=== PATIENT | female | born 1965 | race Caucasian/White ===

== ENCOUNTER → 2023-04-09 | Outpatient (CLI) | payer OTHER, SELFPAY ==
--- NOTE | 2023-04-09 | EMB_PTH ---
PATHOLOGY RESULTS PATIENT: JOSEFA RUTHERFORD LOC: [facility] U#:[id number] AGE/SX: 58/F ROOM: RE04/09/[address]: MAYUR Rodriguez : 1965 BED: DIS: 04/09/2023 SPEC #: [id number] RECD: 04/09/23 11:42 STATUS: RAMAN REStefanie #: [id number] STEFANY: 04/09/23 00:[address]: Indy Iraheta NP DEPT: SURGICAL PATHOLOGY RECD BY: Jael Jean ENTERED: 04/09/23 11:42 SP TYPE: ENDOM BX/C KRYSTAL DR: Dr. Terese Cote MD Tissues: Endometrium, NOS Procedures: Surgery Specimen Level IV HEADER OPERATION: Endometrial biopsy PRE-OP DIAGNOSIS: Abnormal uterine bleeding TISSUE SUBMITTED: Endometrial lining MICROSCOPIC DIAGNOSIS Endometrial biopsy: Proliferative endometrium. See comment. CASSIE:kaitlyn 04/10/2023 COMMENT Focal eosinophilic infiltrates are noted, significance is not clear. Focal areas also show collagenous fibrosis. Clinical correlation and appropriate follow up are necessary. Case has been reviewed in consultation with Dr. Bautista who concurs with the above diagnosis. IDC:AM MICROSCOPIC DESCRIPTION Slides are reviewed. GROSS DESCRIPTION Received is one container labeled with the patient's name and not further designated. The specimen consists of multiple fragments of hemorrhagic soft tissue mixed with frausto mucoid tissue that in aggregate measure 3.0 x 2.5 x 0.3 cm. The specimen is totally submitted in one cassette. / SJ:rg 04/09/2023 TC:5 CPT: [id number]
--- OUTSIDE RECORDS SUMMARY | 2023-04-09 12:52 | XMS RPT_ITS | CCD ---
Author Name Unknown Address [address] [place] [address] Organization [facility] Care Team Providers Care Casing In Line Feeder Name Role Phone Seymour Cote MD Primary Care Provider SEYMOUR COTE Referring Unavailable SEYMOUR COTE Primary Care Unavailable SEYMOUR COTE Primary Care Unavailable SEYMOUR COTE Attending Unavailable Allergies Allergy Classification Reported Allergen(s) Allergy Type Date of Onset Reaction(s) Facility (18 sources) Cat; Translations: [CATS] Allergy to substance 6 Unknown [facility] (18 sources) Cetirizine; Translations: [CETIRIZINE HCL] Drug Allergy 8 Other: See Comments [facility] Work Phone: (18 sources) Dog; Translations: [DOGS] Allergy to substance 6 Unknown [facility] (18 sources) Seasonal allergy; Translations: [SEASONAL ALLERGIES] Allergy to substance 6 Unknown [facility] (18 sources) Sulfonamides (Antibiotic); Translations: [SULFA (SULFONAMIDE ANTIBIOTICS)] Drug Allergy 1 Unknown [facility] Medications Completed/Discontinued Medications Medication Drug Class(es) Dates Sig (Normalized) Sig (Original) [id number] 200 actuat albuterol 0.09 mg/actuat metered dose inhaler (17 sources) beta2-Adrenergic Agonist Start: 11-07-2019 take 2 puff(s) by inhalation every four hours as needed for wheezing albuterol HFA (PROVENTIL HFA, VENTOLIN HFA) 90 mcg/actuation inhaler Inhale 2 Puffs as instructed every 4 hours as needed for Wheezing/Shortnes s of Breath. 18 g 0 11/07/2019 Active Problems Active Problems Problem Classification Problem Date Documented Date Episodic/Chronic Anxiety disorders (1 source) Anxiety; Translations: [Anxiety disorder, unspecified] Chronic Headache; including migraine (2 sources) Migraine with aura; Translations: [Migraine with aura, not intractable, without status migrainosus] Chronic Headache; including migraine (4 sources) Chronic daily headache; Translations: [Chronic daily headache] Episodic Menstrual disorders (17 sources) Menometrorrhagia; Translations: [Excessive and frequent menstruation with irregular cycle] Onset: 02-17-2014 02-17-2014 Chronic Miscellaneous mental health disorders (1 source) Chronic insomnia; Translations: [Psychophysiologic insomnia] Chronic Mood disorders (18 sources) Depressive disorder; Translations: [Depression] Onset: 02-17-2014 02-17-2014 Chronic Other upper respiratory disease (17 sources) Allergic rhinitis; Translations: [Allergic rhinitis, unspecified] Onset: 03-17-2016 03-17-2016 Chronic Residual codes; unclassified (1 source) Behavior finding; Translations: [Other sleep apnea] Chronic Residual codes; unclassified (2 sources) Obstructive sleep apnea syndrome; Translations: [Obstructive sleep apnea (adult) (pediatric)] Chronic Residual codes; unclassified (1 source) Hypoxia; 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] Chronic Past or Other Problems Problem Classification Problem Date Documented Da te Episodic/Chronic Other disorders of stomach and duodenum (17 sources) Nonulcer dyspepsia; Translations: [Functional dyspepsia] Onset: 03-26-2017 03-26-2017 Episodic Other gastrointestinal disorders (12 sources) Alteration in bowel elimination; Translations: [Change in bowel habit] Onset: 03-26-2017 03-26-2017 Episodic Other gastrointestinal disorders (5 sources) Altered bowel function; Translations: [Change in bowel habit] Onset: 03-26-2017 03-26-2017 Episodic Other screening for suspected conditions (not mental disorders or infectious disease) (9 sources) Patient encounter status; Translations: [Encounter for screening mammogram for malignant neoplasm of breast] Onset: 07-18-2022 Episodic Results Test Name Value Interpretation Reference Range Facil ity Vital Signs Date Time Vital Sign Value Performing Clinician Lars troncoso 06-17-2022 13:30-0400 Body height 162 cm Seymour Cote MD Work Phone: [facility] 06-17-2022 13:30-0400 Body temperature 98.1 [degF] Seymour Cote MD Work Phone: [facility] 06-17-2022 13:30-0400 Body weight 80.2 kg Seymour Cote MD Work Phone: [facility] 06-17-2022 13:30-0400 Diastolic blood pressure 78 mm[Hg] Seymour Cote MD Work Phone: [facility] 06-17-2022 13:30-0400 Heart rate 71 /min Seymour Cote MD Work Phone: [facility] 06-17-2022 13:30-0400 Respiratory rate 18 /min Seymour Cote MD Work Phone: [facility] 06-17-2022 13:30-0400 SaO2% (BldA) [Mass fraction] 97 % Seymour Cote MD Work Phone: [facility] 06-17-2022 13:30-0400 Systolic blood pressure 132 mm[Hg] Seymour Cote MD Work Phone: [facility] 09-06-2021 13:06-0400 Body temperature 97.81 [degF] Davie Ling Jr., MD Work Phone: [facility] 09-06-2021 13:06-0400 Body weight 79.38 kg Davie Ling Jr., MD Work Phone: [facility] 09-06-2021 13:06-0400 Diastolic blood pressure 64 mm[Hg] Davie Ling Jr., MD Work Phone: [facility] 09-06-2021 13:06-0400 Heart rate 81 /min Davie Ling Jr., MD Work Phone: [facility] 09-06-2021 13:06-0400 Respiratory rate 18 /min Davie Ling Jr., MD Work Phone: [facility] 09-06-2021 13:06-0400 SaO2% (BldA) [Mass fraction] 96 % Davie Ling Jr., MD Work Phone: [facility] 09-06-2021 13:06-0400 Systolic blood pressure 116 mm[Hg] Davie Lnig Jr., MD Work Phone: [facility] Encounters Encounter Date Encounter Type Care Provider Facility Start: 07-24-2022 ambulatory Seymour minor MD Work Phone: [facility] Procedures Date Procedure Procedure Detail Performing Clinician Start: 06-17-2022 Cytp c/v auto thin l yr prepj scr mnl rescr phys Seymour Cote MD Work Phone: Start: 06-17-2022 Iadna human papillom avirus high-risk types Seymour Cote MD Work Phone: Start: 04-20-2017 Colonoscopy Seymour montalvo MD Work Phone: Start: 04-26-2015 Mammography Seymour montalvo MD Work Phone: Plan of Treatment Date Care Activity Detail Author Start: 07-19-2027 LIPID SCREEN LIPID SCREEN [facility] Start: 06-18-2027 HPV TESTING HPV TESTING [facility] Start: 06-18-2027 PAP TESTING PAP TESTING [facility] Start: 07-18-2025 DIABETES SCREEN DIABETES SCREEN [facility] Start: 09-20-2023 DIABETES SCREEN DIABETES SCREEN [facility] Start: 06-18-2023 COVID-19 VACCINE (3 - Booster for Pfizer series) COVID-19 VACCINE (3 - Booster for Pfizer series) [facility] Immunizations Immunization Date Immunization Notes Care Provider Fa cility 04-12-2021 COVID-19 vaccine, ag e 12+ yr (PFIZER-BIONTECH - CABALLERO TOP) Seymour Cote MD Work Phone: [facility] Work Phone: 01-25-2010 tetanus toxoid, redu kari diphtheria toxoid, and acellular pertussis vaccine, adsorbed Seymour Cote MD Work Phone: [facility] Payers Date Payer Category Payer Unknown [employer] [id number] 2021-Present [phone] [address] [place] [address] PPO [id number] 2021 Unknown [id number] 2017 Unknown [id number] Social History Date Type Detail Facility Start: 11-27-2010 End: 06-26-2015 Tobacco smoking status NHIS Ex-smoker [facility] History of tobacco use Cigarette Smoker [facility] Start: 11-27-2010 End: 06-26-2015 Tobacco use and exposure Smokeless tobacco non-user [facility] Start: 09-19-2020 End: 06-17-2022 Alcohol intake Current drinker of alcohol (finding) [facility] Start: 09-19-2020 End: 06-17-2022 Alcohol intake [facility] Start: 10-09-2019 End: 06-16-2022 History SDOH Alcohol Frequency 3 [facility] Start: 10-09-2019 End: 06-16-2022 History SDOH Alcohol Std Drinks 1 [facility] Start: 04-20-2017 History SDOH Alcohol Comment monthly [facility] Start: 10-09-2019 End: 06-16-2022 History SDOH Social Connections Phone 2 [facility] Start: 10-09-2019 End: 06-16-2022 History SDOH Social Connections Get Together 5 [facility] Start: 10-11-2019 End: 11-26-2021 History SDOH Financial 4 [facility] Start: 10-09-2019 Education 15 [facility] Start: 11-27-2010 Tobacco Comment quit 10 years ago [facility] Start: 1965 Sex Assigned At Female [facility] Start: 06-28-2021 End: 11-06-2021 Exposure to SARS-CoV-2 (event) Not sure [facility] History of tobacco use Current smoker [facility] Clinical Notes 09-03-2015 to 07-25-2022 Telephone Encounter - Meera Chapman APRN.BRANCH OPERATIONS SPECIALIST - 07/25/2022 4:31 PM EDTTelephone Encounter - Davie Ling Jr., MD - 06/29/2022 9:54 AM EDTPatient Noémiguel angel Zhane - 10/23/2021 11:54 AM EDT Note Date & Type Note Facility 07-25-2022 Miscellaneous Notes The 10-year ASCVD risk score (Saarth DK, et al., 2019) is: 3.8% Values used to calculate the score: Age: 57 years Sex: Female Is Non- : No Diabetic: No Tobacco smoker: No Systolic Blood Pressure: 132 mmHg Is BP treated: No HDL Cholesterol: 33 mg/dL Total Cholesterol: 208 mg/dL documented in this encounter [facility] 07-23-2022 Note Patient Outreach (IN TMM[facility]) JOSEFA RUTHERFORD ([id number]) 1965 F Date Time Provider Department 07/23/22 SEYMOUR COTE During your visit today, we recorded the following information about you: Allergies As of Date: 07/23/2022 Noted Allergy Reaction CATS 06/26/2015 16 - Unknown Comments: Verified by skin testing DOGS 06/26/2015 16 - Unknown Comments: Verified by skin testing SEASONAL ALLERGIES 06/26/2015 16 - Unknown Comments: Dust mites, trees, grasses, weeds and ragweed verified by skin testing SULFA (SULFONAMIDE ANTIBIOTICS) 11/27/2010 16 - Unknown Comments: Happened as a baby ZYRTEC (CETIRIZINE HCL) 04/30/2017 14 - Other: See Comments Comments: weird dreams Date Reviewed: 06/17/2022 Reviewed by: Anabela Saelh LPN - Fully Assessed Visit Diagnosis:Encounter for screening mammogram for breast cancer [Z12.31] Order(s):[facility] [[id number]] Order #: [id number] FUTURE Prescriptions as of 07/28/2022 - gabapentin (NEURONTIN) 300 mg capsule Take 1 capsule by mouth twice daily for 90 days. - mometasone (NASONEX) 50 mcg/actuation nasal spray Use 2 Sprays in the nose once daily as needed (nasal congestion, sinus pain and pressure, allergies, runny nose). Rinse mouth after use. - albuterol HFA (PROVENTIL HFA, VENTOLIN HFA) 90 mcg/actuation inhaler Inhale 2 Puffs as instructed every 4 hours as needed for Wheezing/Shortness of Breath. - loratadine (CLARITIN) 10 mg tablet Take 1 tablet by mouth once daily. 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 Please contact our schedulers as well as [facility] to see if they have yet to reach out to patient. Davie Ling MD documented in this encounter [facility] 06-19-2022 Miscellaneous Notes [employer]af[employer] message sent to pt asking if she wants to do the pap titration study. Marylu Willis LPN documented in this encounter [facility] 06-17-2022 Note HNO ID: [id number] Author: Seymour Cote MD Service: ? Author Type: Physician Type: Progress Notes Filed: 07/20/2022 10:23 PM Note Text: This note was created using PopUpstersriter. Subjective Josefa Rutherford is a 57 year old female. HISTORY Josefa Rutherford is a 57 year old lady here for yearly exam and follow up appointment. Reviewed issue with the recent HST. No CPAP titration done yet--some issues with trying to get it scheduled and being told study not covered. [facility] insurance nurse said is covered. Noted that did not try gabapentin after saw Dr. Ling. Will be seeing Dr. Dowd in a few days for headaches. PAST MEDICAL HISTORY Diagnosis Date Anemia Depression History of seasonal allergies Misperception of sleep state 09/03/2015 PSG done 2015 Nightmares 09/03/2015 Snoring Transfusion history 2010 3 units PRBCs for acute anemia due to AUB Current Outpatient Medications Medication Sig albuterol HFA (PROVENTIL HFA, VENTOLIN HFA) 90 mcg/actuation inhaler Inhale 2 Puffs as instructed every 4 hours as needed for Wheezing/Shortness of Breath. loratadine (CLARITIN) 10 mg tablet Take 1 tablet by mouth once daily. gabapentin (NEURONTIN) 300 mg capsule Take 1 capsule by mouth twice daily for 90 days. mometasone (NASONEX) 50 mcg/actuation nasal spray Use 2 Sprays in the nose once daily as needed (nasal congestion, sinus pain and pressure, allergies, runny nose). Rinse mouth after use. No current facility-administered medications for this visit. ALLERGIES Allergen Reactions Cats Unknown Verified by skin testing Dogs Unknown Verified by skin testing Seasonal Allergies Unknown Dust mites, trees, grasses, weeds and ragweed verified by skin testing Sulfa (Sulfonamide * Unknown Happened as a baby Zyrtec [Cetirizine * Other: See Comments weird dreams FAMILY HISTORY Problem Relation Age of Onset Diabetes Mother Colon Cancer Mother 72 diagnosed at 72yo (stage 4) Diabetes Father Cancer Father 72 pancreatic Skin Cancer Brother Social History Tobacco Use Smoking status: Former Years: 5.00 Types: Cigarettes Smokeless tobacco: Never Tobacco comments: quit 10 years ago Substance Use Topics Alcohol use: Yes Alcohol/week: 2.5 standard drinks Types: 1 Glasses of Wine (5oz) per week Comment: monthly Drug use: No See diagnoses and orders Review of Systems Objective BP 132/78 Pulse 71 Temp 36.7 ?C (98.1 ?F) Resp 18 Ht 162 cm (5' 3.78 ) Wt 80.2 kg (176 lb 12.8 oz) LMP 04/30/2017 (Approximate) SpO2 97% BMI 30.56 kg/m? Physical Exam Vitals reviewed. Constitutional: Appearance: She is well-developed. HENT: Head: Normocephalic and atraumatic. Right Ear: External ear normal. Left Ear: External ear normal. Nose: Nose normal. Eyes: Conjunctiva/sclera: Conjunctivae normal. Neck: Thyroid: No thyromegaly. Cardiovascular: Rate and Rhythm: Normal rate and regular rhythm. Pulses: Normal pulses. Heart sounds: Normal heart sounds. No murmur heard. No friction rub. No gallop. Pulmonary: Effort: Pulmonary effort is normal. Breath sounds: Normal breath sounds. Abdominal: General: Bowel sounds are normal. There is no distension. Palpations: Abdomen is soft. There is no mass. Tenderness: There is no abdominal tenderness. Genitourinary: General: Normal vulva. Comments: PAP done Musculoskeletal: General: No deformity. Normal range of motion. Lymphadenopathy: Cervical: No cervical adenopathy. Skin: General: Skin is warm and dry. Coloration: Skin is not jaundiced or pale. Findings: No rash. Neurological: General: No focal deficit present. Mental Status: She is alert and oriented to person, place, and time. Cranial Nerves: No cranial nerve deficit. Sensory: No sensory deficit. Motor: No abnormal muscle tone. Coordination: Coordination normal. Deep Tendon Reflexes: Reflexes normal. Psychiatric: Mood and Affect: Mood normal. Behavior: Behavior normal. Thought Content: Thought content normal. Judgment: Judgment normal. Assessment and Plan Encounter Diagnosis ICD-10-CM 1. Routine medical exam Z00.00 COMP METABOLIC PANEL CBC LIPID PANEL BASIC 2. Special screening for malignant neoplasms, colon Z12.11 COLONOSCOPY SCREENING 3. Screening for cervical cancer Z12.4 PAP TEST 4. Screening for human papillomavirus (HPV) Z11.51 PAP TEST 5. Screening, lipid Z13.220 LIPID PANEL BASIC 6. Screening for diabetes mellitus Z13.1 COMP METABOLIC PANEL 7. Migraine with aura and without status migrainosus, not intractable G43.109 8. Chronic daily headache R51.9 at least 14 to 16 per month 9. GERRI (obstructive sleep apnea) G47.33 Patient here for yearly exam and follow up. Above issues addressed with patient. Patient involved in shared decision making for management of medical issues. History and medications reviewed. Epic updated as needed Refills taken care of and meds adjusted (more content not included)... [facility] 06-17-2022 Instructions Seymour Cote MD - 06/17/2022 2:22 PM EDT Images from the original note were not included. Miralax/Dulcolax Bowel Prep For this bowel preparation, you will need to purchase the following medications at any pharmacy: Over the counter Miralax (generic name is polyethylene glycol) 8.3 oz or 238 grams Four (4) Dulcolax (generic name is Bisacodyl) tablets 3 days prior to your procedure, you need to be on a low fiber diet (Such as popcorn, beans, seeds, nuts, salad and raw vegetables, corn, fresh and dried fruit and multi-grain bread) YOU MUST BE ON CLEAR LIQUIDS FOR 2 FULL DAYS PRIOR TO YOUR COLONOSCOPY Day one which would be two days before your colonoscopy, you will need to be on clear liquids all day. You may have coffee or tea-black only (no cream), clear broths (beef, chicken or vegetable), apple juice, white grape juice, pop, Gatorade, Powerade, lemonade, Jello, popsicles, Caio-aid, and water-But nothing red or dark purple in color and no dairy products, tomato or orange juices. Day two which would be the day before your colonoscopy continue clear liquids all day as above. And follow the instructions below: 8:00 AM - Mix the Miralax with 64 oz of Gatorade or another clear liquid of choice and place in refrigerator. Most people say the drink is better cold. 4:00 PM - Take 2 of the Dulcolax tablets with 8 oz of water. 6:00 PM - Start to drink the Miralax mixture. You must finish it by midnight. 8:00 PM - Take the other 2 Dulcolax tablets with 8 oz of water. You may continue to drink clear liquids while you are taking your prep and after you finish it as long as it is before midnight. Drink lots of fluids so you don t become dehydrated. Nothing to drink after midnight the night before the procedure unless you are instructed differently by the physician or nurses. Please remember to take your normal medications the morning of the procedure with a small sip of water especially your blood pressure medications. If you are diabetic, you need to contact your physician about how to take your diabetic medications and/or insulin during the prepping period and the day of your procedure. Any questions please call: Dr. Oshea or Dr. Antoine [phone] Dorie Rosado [phone] Dr. Wren [phone] [facility] nurses [phone] documented in this encounter [facility] 06-17-2022 History of Presen t illness Narrative This note was created using PopUpstersriter. Subjective Josefa Rutherford is a 57 year old female. HISTORY Josefa Rutherford is a 57 year old lady here for yearly exam and follow up appointment. Reviewed issue with the recent HST. No CPAP titration done yet--some issues with trying to get it scheduled and being told study not covered. [facility] insurance nurse said is covered. Noted that did not try gabapentin after saw Dr. Ling. Will be seeing Dr. Dowd in a few days for headaches. PAST MEDICAL HISTORY Diagnosis Date Anemia Depression History of seasonal allergies Misperception of sleep state 09/03/2015 PSG done 2016 Nightmares 09/03/2015 Snoring Transfusion history 2010 3 units PRBCs for acute anemia due to AUB Current Outpatient Medications Medication Sig albuterol HFA (PROVENTIL HFA, VENTOLIN HFA) 90 mcg/actuation inhaler Inhale 2 Puffs as instructed every 4 hours as needed for Wheezing/Shortness of Breath. loratadine (CLARITIN) 10 mg tablet Take 1 tablet by mouth once daily. gabapentin (NEURONTIN) 300 mg capsule Take 1 capsule by mouth twice daily for 90 days. mometasone (NASONEX) 50 mcg/actuation nasal spray Use 2 Sprays in the nose once daily as needed (nasal congestion, sinus pain and pressure, allergies, runny nose). Rinse mouth after use. No current facility-administered medications for this visit. ALLERGIES Allergen Reactions Cats Unknown Verified by skin testing Dogs Unknown Verified by skin testing Seasonal Allergies Unknown Dust mites, trees, grasses, weeds and ragweed verified by skin testing Sulfa (Sulfonamide * Unknown Happened as a baby Zyrtec [Cetirizine * Other: See Comments weird dreams FAMILY HISTORY Problem Relation Age of Onset Diabetes Mother Colon Cancer Mother 72 diagnosed at 72yo (stage 4) Diabetes Father Cancer Father 72 pancreatic Skin Cancer Brother Social History Tobacco Use Smoking status: Former Years: 5.00 Types: Cigarettes Smokeless tobacco: Never Tobacco comments: quit 10 years ago Substance Use Topics Alcohol use: Yes Alcohol/week: 2.5 standard drinks Types: 1 Glasses of Wine (5oz) per week Comment: monthly Drug use: No See diagnoses and orders Review of Systems Objective BP 132/78 Pulse 71 Temp 36.7 C (98.1 F) Resp 18 Ht 162 cm (5' 3.78 ) Wt 80.2 kg (176 lb 12.8 oz) LMP 04/30/2017 (Approximate) SpO2 97% BMI 30.56 kg/m Physical Exam Vitals reviewed. Constitutional: Appearance: She is well-developed. HENT: Head: Normocephalic and atraumatic. Right Ear: External ear normal. Left Ear: External ear normal. Nose: Nose normal. Eyes: Conjunctiva/sclera: Conjunctivae normal. Neck: Thyroid: No thyromegaly. Cardiovascular: Rate and Rhythm: Normal rate and regular rhythm. Pulses: Normal pulses. Heart sounds: Normal heart sounds. No murmur heard. No friction rub. No gallop. Pulmonary: Effort: Pulmonary effort is normal. Breath sounds: Normal breath sounds. Abdominal: General: Bowel sounds are normal. There is no distension. Palpations: Abdomen is soft. There is no mass. Tenderness: There is no abdominal tenderness. Genitourinary: General: Normal vulva. Comments: PAP done Musculoskeletal: General: No deformity. Normal range of motion. Lymphadenopathy: Cervical: No cervical adenopathy. Skin: General: Skin is warm and dry. Coloration: Skin is not jaundiced or pale. Findings: No rash. Neurological: General: No focal deficit present. Mental Status: She is alert and oriented to person, place, and time. Cranial Nerves: No cranial nerve deficit. Sensory: No sensory deficit. Motor: No abnormal muscle tone. Coordination: Coordination normal. Deep Tendon Reflexes: Reflexes normal. Psychiatric: Mood and Affect: Mood normal. Behavior: Behavior normal. Thought Content: Thought content normal. Judgment: Judgment normal. Assessment and Plan Encounter Diagnosis ICD-10-CM 1. Routine medical exam Z00.00 COMP METABOLIC PANEL CBC LIPID PANEL BASIC 2. Special screening for malignant neoplasms, colon Z12.11 COLONOSCOPY SCREENING 3. Screening for cervical cancer Z12.4 PAP TEST 4. Screening for human papillomavirus (HPV) Z11.51 PAP TEST 5. Screening, lipid Z13.220 LIPID PANEL BASIC 6. Screening for diabetes mellitus Z13.1 COMP METABOLIC PANEL 7. Migraine with aura and without status migrainosus, not intractable G43.109 8. Chronic daily headache R51.9 at least 14 to 16 per month 9. GERRI (obstructive sleep apnea) G47.33 Patient here for yearly exam and follow up. Above issues addressed with patient. Patient involved in shared decision making for management of medical issues. History and medications reviewed. Epic updated as needed Refills taken care of and meds adjusted as indicated after reviewed history, exam and labs. Health Maintenance reviewed. Updated record and/or ordered tests as recorded. Encouraged on efforts at healthy diet and regular exercise and adequate sleep. Seymour Cote MD [facility] OPEN ACCESS QUESTIONNAIRE 1. Are you currently having any new or unusual stomach/gastrointestinal issues at this time such as constipation, diarrhea, abdominal pain, rectal bleeding etc?No 2. Do you have any difficulty swallowing? No 3. Do you have any implanted devices such as a defibrillator, pacemaker, cardiac stents or deep brain stimulator? No 4. Do you take any Blood thinners such as Coumadin, Plavix, Xarelto, Eliquis, Brilinta or any other blood thinner? No 5. Do you have any new or past cardiac (heart) or pulmonary (lung) issues? No 6. Do you currently use any oxygen? No 7. Have you been hospitalized in the past 6 weeks? No 8. Have you had difficulty with anesthesia previously re: Difficult intubation? No Other difficulty or allergic reaction to anesthesia other than post op N/V? No 9. Are you on dialysis? No 10. Do you have any bleeding disorders such as hemophilia or Factor 5? No 11. Are you an Insulin Dependent Diabetic? No IF ANY OF THE TOP ELEVEN QUESTIONS ARE ANSWERED YES PLEASE SCHEDULE THE PATIENT FOR A CONSULT. N/A 12. Is the patient's BMI 40 or greater? No:Body mass index is 30.56 kg/m .. 13. Do you take any narcotics or anti-Anxiety medications? No 14. Do you use any illegal or recreational drugs including marijuana? No 15. Any alcohol use: YES: What type of alcohol, how much and how often do you drink? : rarely 16. Have you been diagnosed with chronic liver disease such as hepatitis or cirrhosis? No 17. Do you have a seizure disorder? No 18. Do you have ulcerative colitis or Crohn's disease? No 19. Are you or could you be ? No 20. Any other important health information we should be made aware of prior to your colonoscopy? No To be completed by LIP: Did patient have MAC anesthesia with a previous endoscopy procedure? No Patient appropriate for Open Access Colonoscopy: Yes: appropriate for Open Access Procedure Checklist: Prior to closing the encounter: Complete questionnaire: Yes Confirm Prep order has been Ordered/Pended: Yes. Patient's procedure could be delayed if not given the script for the prep. Please ensure the prep is escripted to pharmacy or printed. Instructions for the prep will print upon filing or pending this smartset. Please send all open access questionnaires to [facility] Pool #[id number] documented in this encounter [facility] 11-27-2021 Miscellaneous Notes Received voicemail 11-27-21 at 1:21 PM. Yes my name is Altagracia Rutherford. My phone number is [phone]. I am the patient. My birthday is 67. I'm calling because two weeks ago I received a message from Dr. Ling saying he wanted to have a sleep lab done. I text back yes last Thursday and nurse called me said that someone was going to get a hold of me to schedule this lab test and it's two weeks later and I am still waiting. So I'm just wondering how long it takes to schedule a lab test. So if someone could call me back I'd appreciate it. Thank you. Bye. Call back to patient to advise that upon reviewing chart, noted that the PAP titration was ordered on 11-20-21. Provided the number to schedule this test , and also transferred her directly to schedule. Advised if there were any issues to contact the office. Paulina South RN November 27, 2021 3:15 PM documented in this encounter [facility] 11-20-2021 Miscellaneous Notes Please assist pt in scheduling appointment for PAP Titration. Thank you. LAVON Santana I have just received message and order placed for PAP titration. Davie Ling MD Patient agreeable to CPAP titration. Patient states she's been experiencing some dyspnea since HSAT. Mimi Elliott MA documented in this encounter [facility] 11-19-2021 Miscellaneous Notes PLEASE SEE MESSAGE 11/11. Mimi Elliott MA documented in this encounter [facility] 11-06-2021 Miscellaneous Notes Pt updated through [facility] of upcoming appointments, headache clinic info, and recommended in keeping scheduled appointments. LAVON Santana documented in this encounter [facility] 10-23-2021 History of Presen t illness Narrative Sleep Study Check-In Documentation Date: October 23, 2021 Name: Josefa Young Rutherford Comments: HST was returned in working order with all sleep questionnaires Nuno Phelan Pt called to say she tried study over the weekend and was having issues with a belt and pulse ox and isn't sure if it recorded anything. Told her to return the device and if there is no recording/failed study we will call to reschedule. Nomad: [id number] Date: 10/17/21 [employer] Mailout Tracking Number: [id number] [employer] Return Tracking Number: [id number] September 16, 2021 An order has been received for Home Sleep Apnea Test (HSAT) from Dr. Davie Ling Jr., MD, A. Sleep Center Staff/Real Estate Closing Coordinator Staff Orders. Visit prep complete - Please refer to the sleep study order (under procedures tab) for protocol details and special instructions. The sleep study is scheduled for 09/25/2021. Insurance: Payor: [employer] / Plan: [place] [employer] INSURED / Product Type: PPO / Payor/Plan Subscr Sex Relation Sub. Ins. ID Effective Group Num 1. [employer] - S* JOSEFA RUTHERFORD 1965 Female Self [id number] 03/30/21 [address] [place] Rodgers documented in this encounter [facility] 09-23-2021 Miscellaneous Notes Called the patient's insurance company [employer] at ph# [phone]. Spoke with Evita Ref# for the phone call is: [id number] 09/23/21 The home sleep study CPT code 08678 doesn't require an approval. Dr. Luis Wong (provided his NPI#) is a headache neurologist and is in network and doesn't require any approval. Notified the patient and she was upset saying they require approval and then she hung up. Called the patient and discussed what the insurance is requesting. The patient was told that the Home Sleep Study requires approval. [facility] told the patient that no request has been sent. The referral notes say no pre-cert is required. Tried to call the insurance and long wait time. Will keep trying to reach insurance. Customer Service Ph# prior auth [phone] Patient reports her insurance informed her the sleep study is not authorized (even though the referral states authorized). Insurance informed her, Dr. Ling needs to submit a new request with clinical notes. Patient is very worried since the sleep study is being mailed to her and scheduled for Wed. Advised patient if this issue is not clear by Wed, and she receives it in the mail, do not open it, just return to sender. Insurance also informs her Dr. Wong is not covered, and patient should contact Dr. Ling for a list of doctor names, so [facility] can tell patient who is covered. Asking Dr. Ling to please advise patient. documented in this encounter [facility] 09-06-2021 History of Presen t illness Narrative NEW PATIENT (CONSULT) HISTORY AND PHYSICAL EXAM PRIMARY CARE PHYSICIAN: Seymour Cote MD REASON FOR CONSULT: See below REFERRING PHYSICIAN: Seymour Cote MD CHIEF COMPLAINT: I have headaches and I do not sleep well. Consultation requested by Seymour Cote MD for an opinion regarding chief complaint of Patient presents with: New Neur Headache: Consult Headaches New NI Sleep: Consult Possible GERRI and my final recommendations will be communicated back to the requesting physician by way of shared medical record or letter via [place] mail. HISTORY OF PRESENT ILLNESS: Josefa Rutherford is a 56 year old female, BMI 31 kg/m2 with a PMH significant for that below. The patient had a prior PSG in 2016 at [facility] that per report was unremarkable. Patient appears anxious at onset of interview. Patient reports she is having multiple types of headaches: -states she sleeps and wakes up gasping for breath and snorting with a frontal headache. -gets bad headaches when damp or raining (told take sudafed in the past). -has dx of anxiety and states maybe they are due to stress. -states headaches where she feels like someone is squeezing her head. -headaches that keep her up all night - again feels like someone is trying to squeeze her head. -sinus pressure. -sometime feels like warm air hits face and gets an instant headache. -other times in the temp area and the front and in the back of the neck. During headaches can have feel generalized weakness and tired. No associated vision changes. +N but no vomiting. Endorses photophobia and phonophobia. States no relieving factors and provoking factors as above. I typically just sleep them off . Headaches are typically worse in the AM, but can occur anytime of day. Headaches are at least 3-4 times per week. Has never been tried on a medication for the past 3 years of having these headaches. OTC tried Sudafed, Tylenol, Motrin and Advil with no relief. No prior head imaging. Daughter with migraines. States sleep is often poor because when she lies down her mind starts racing. Waking due to snorting is getting worse over the past 3 years. Daughter witnessed apneas, and snoring. Does get nightmares and reportedly cries in her sleep. No RLS symptoms. No pain or discomfort. But then states I toss and turn a lot so I must not be comfortable . States sleeping issues in terms of insomnia have been going on for years. Patient states when she was younger would be up for days cleaning. Adds that she suffers from depression. She is not taking medications either for depression or anxiety. Does not see a counselor. Does not want to take meds for depression or anxiety. Pt states she would like to see someone for anxiety and depression, but states she has not been able to get a referral. Depression Screening 03/17/2016 08/26/2017 09/18/2020 PHQ-2 Score 0 3 4 PHQ-9 Score - 15 17 PED PHQ-9 03/17/2016 08/26/2017 09/18/2020 Little interest or pleasure in doing things - - More than half the days Feeling down, depressed, or hopeless - - More than half the days Trouble falling or staying asleep, or sleeping too much - - Nearly every day Feeling tired or having little energy - - Nearly every day Poor appetite or overeating - - Several days Feeling bad about yourself - or that you are a failure or have let yourself or your family down - - More than half the days Trouble concentrating on things, such as reading the newspaper or watching television - - More than half the days Moving or speaking so slowly that other people could have noticed. Or the opposite - being so fidgety or restless that you have been moving around a lot more than usual - - More than half the days Thoughts that you would be better off , or of hurting yourself in some way - - Not at all If you checked off any problems, how difficult have these problems made it for you to do your work, take care of things at home, or get along with other people? - - Very difficult PHQ-9 Score - - 17 (Moderately Severe Depression) REVIEW OF SYSTEMS GENERAL:No weight loss, malaise or fevers. HEENT: No changes in hearing or vision, no nose bleeds or other nasal problems NECK:+Chronic neck tightness. RESPIRATORY: Cough and HARE when allergies are acting up -- and I am allergic to everything . CARDIOVASCULAR: Negative for chest pain but + palpitations. GASTROINTESTINAL: Negative for abdominal discomfort, blood in stools or black stools or change in bowel habits GENITOURINARY: No history of dysuria, frequency or incontinence MUSCULOSKELETAL: Negative for joint pain or swelling, back pain or muscle pain. NEUROLOGIC:Negative for focal numbness or weakness, and dizziness or syncope, vision changes, speech/language changes, changes in gait or falls -- besides those complaints as above in HPI. SKIN:Negative for lesions, rash, and itching. PSYCHIATRIC: See HPI. HEMATOLOGIC/LYMPHATIC/IMMUNOLOG IC:Negative for prolonged bleeding, bruising easily or swollen nodes. ENDOCRINE: Negative for cold or heat intolerance, polyuria, polydipsia and goiter. The remainder of the ROS was reviewed and is negative. LAB/IMAGING: Reviewed and include: WBC (k/uL) Date Value 09/19/2020 9.01 RBC (m/uL) Date Value 09/19/2020 4.56 Hemoglobin (g/dL) Date Value 09/19/2020 14.4 Hematocrit (%) Date Value 09/19/2020 43.7 MCV (fL) Date Value 09/19/2020 95.8 MCH (pG) Date Value 09/19/2020 31.6 MCHC (g/dL) Date Value 09/19/2020 33.0 RDW-CV (%) Date Value 09/19/2020 12.2 Platelet Count (k/uL) Date Value 09/19/2020 310 MPV (fL) Date Value 09/19/2020 10.7 Glucose (mg/dL) Date Value 09/19/2020 100 (H) BUN (mg/dL) Date Value 09/19/2020 13 Creatinine (mg/dL) Date Value 09/19/2020 0.85 Sodium (mmol/L) Date Value 09/19/2020 140 Potassium (mmol/L) Date Value 09/19/2020 4.2 Chloride (mmol/L) Date Value 09/19/2020 106 (H) CO2 (mmol/L) Date Value 09/19/2020 25 Protein, Total (g/dL) Date Value 09/19/2020 7.2 Albumin (g/dL) Date Value 09/19/2020 4.5 Calcium (mg/dL) Date Value 09/19/2020 9.4 Alkaline Phosphatase (U/L) Date Value 09/19/2020 110 Bilirubin, Total (mg/dL) Date Value 09/19/2020 0.3 AST (U/L) Date Value 09/19/2020 26 ALT (U/L) Date Value 09/19/2020 20 MEDICATIONS: albuterol HFA (PROVENTIL HFA, VENTOLIN HFA) 90 mcg/actuation inhaler Inhale 2 Puffs as instructed every 4 hours as needed for Wheezing/Shortness of Breath. loratadine (CLARITIN) 10 mg tablet Take 1 tablet by mouth once daily. mometasone (NASONEX) 50 mcg/actuation nasal spray Use 2 Sprays in the nose once daily as needed (nasal congestion, sinus pain and pressure, allergies, runny nose). Rinse mouth after use. HISTORIES PAST MEDICAL HISTORY Diagnosis Date Anemia Depression History of seasonal allergies Misperception of sleep state 09/03/2015 PSG done 2016 Nightmares 09/03/2015 Snoring Transfusion history 2010 3 units PRBCs for acute anemia due to AUB FAMILY HISTORY Problem Relation Age of Onset Diabetes Mother Colon Cancer Mother 72 diagnosed at 72yo (stage 4) Diabetes Father Cancer Father 72 pancreatic Skin Cancer Brother SOCIAL HISTORY Social History Tobacco Use Smoking status: Former Smoker Years: 5.00 Types: Cigarettes Smokeless tobacco: Never Used Tobacco comment: quit 10 years ago Substance Use Topics Alcohol use: Yes Alcohol/week: 2.5 standard drinks Types: 1 Glasses of Wine (5oz) per week Comment: monthly Drug use: No PHYSICAL EXAMINATION BP 116/64 Pulse 81 Temp 36.6 C (97.8 F) Resp 18 Wt 79.4 kg (175 lb) LMP 04/30/2017 (Approximate) SpO2 96% BMI 31.00 kg/m GENERAL EXAM: General appearance: NAD, pleasant. HEENT: NC/AT, nasal congestion absent, no oral lesions, membranes moist. NECK: No masses, supple. Lungs: CTA bilaterally. No wheezes present. CV: RRR nl S1, S2, no murmurs. No carotid bruits. Abd: Soft, nontender, nondistended. Bowel sounds present. Extr: No cyanosis, clubbing or edema. No evidence of fasciculations. Extremity pulses palpable and normal. Skin: Cool to touch. No rash. NEUROLOGICAL EXAM: General: Awake, alert, oriented x3 (person,place,time), speech fluent, no dysarthria; comprehension, naming, repetition intact. Short and mcc memory intact. Fund of knowledge grossly normal by MOCA. CN: PERRL, fundi appear normal including no evidence of papilledema, EOMI and without nystagmus, VFF to confrontation, facial sensation and strength are normal and symmetric, hearing is intact to finger rub bilaterally, palate and tongue movements are intact and symmetric. SCM and trapezius strength normal. Motor: Normal tone, bulk and strength (5/5) bilaterally (throughout extremities x4). Reflexes: 2/4 and symmetric, plantar stimulation is flexor. Coordination: FNF, LJ, HTS intact. No tremors. Sensation: LT, PP, vibration, temperature intact throughout. No evidence of neglect. Gait: Narrow based and stable with normal stride and arm swing. Normal tandem. Romberg normal. Assessment and Plan: ASSESSMENT/PLAN: 1. Mixed headache - ICD9: 784.0, ICD10: R51.9 (primary diagnosis) 2. Sleep apnea-like behavior - ICD9: 780.59, ICD10: G47.39 3. Chronic insomnia - ICD9: 780.52, ICD10: F51.04 4. Anxiety - ICD9: 300.00, ICD10: F41.9 5. Depression, unspecified depression type - ICD9: 311, ICD10: F32.A Patient with complaints of headaches as above, that history would suggest are of a mixed nature -- tension headaches (squeezing), migraines (sensitivities) and those possibly associated with GERRI. Non-focal neuro exam. We discussed possible head imaging given progression of headaches but pt would prefer to hold on such until we see if she responds to meds. With regards to headache treatment, we discussed options, and I would recommend gabapentin 300mg BID as it will aid with both tension and migraine headaches while also providing possibly some relief of anxiety symptoms. Patient agrees. SE and ADRs d/w pt. Will start gabapentin 300mg BID. As for GERRI symptoms, will order HSAT to evaluate with pt having risk factors of obesity, crowded airway but no known cardiac or pulmonary disease. Finally, regarding insomnia, the patient has a known history of anxiety and depression and at times, history might suggest deo. She is not being treated for either and I suspect these are the driving components of patient's insomnia (at least sleep onset). Pt with elevated PHQ9 as above. Pt would like referral to psychiatry and referral will be made at this time. Pt will follow up after HSAT complete. Davie Ling MD I spent a total of 50 minutes on the date of the service which included preparing to see the patient, [id number] patient care, completing clinical documentation, obtaining and/or reviewing separately obtained history, performing a medically appropriate examination, counseling and educating the patient/family/caregiver, ordering medications, tests, or procedures, independently interpreting results (not separately reported) and communicating results to the patient/family/caregiver. PDMP website checked and validated. All prescriptions have been APPROPRIATELY filled. No suspicious activity was identified. 09/06/2021 by Davie Ling MD documented in this encounter [facility] 07-19-2021 Miscellaneous Notes Can you please advise Dr. Cote routing comment, I had made a consult order for her to go to [facility]ache Clinic provider and PSR rescheduled her with Dr Ling--I did not think he was under [facility] Clinic and meant for her to gets scheduled with someone like Dr. Pagan (thought I thinks someone said she might be retiring). Is Dr. Ling considered to be under [facility]? If not, would try to get scheduled with Headache Clinic provider. I had told her he did mostly Sleep Disorders. Thanks, Seymour See MyChart reply See MyChart reply Note given to Dr. Cote to address documented in this encounter [facility] 06-22-2021 Miscellaneous Notes Called pt and left her a voicemail. 1st attempt. 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 She does not have sputum., No fevers. Constipation 02/17/2014 03/17/2016 Last Assessment & Plan: Patient has constipation for the last 10 days, she has been taking clarelax, she is passing a lot fo gas and ahas a lot of belching and heart burn. 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 She does not have sputum., No fevers. Constipation 02/17/2014 03/17/2016 Last Assessment & Plan: Patient has constipation for the last 10 days, she has been taking clarelax, she is passing a lot fo gas and ahas a lot of belching and heart burn. 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 She does not have sputum., No fevers. Constipation 02/17/2014 03/17/2016 Last Assessment & Plan: Patient has constipation for the last 10 days, she has been taking clarelax, she is passing a lot fo gas and ahas a lot of belching and heart burn. 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 She does not have sputum., No fevers. Constipation 02/17/2014 03/17/2016 Last Assessment & Plan: Patient has constipation for the last 10 days, she has been taking clarelax, she is passing a lot fo gas and ahas a lot of belching and heart burn. 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 She does not have sputum., No fevers. Constipation 02/17/2014 03/17/2016 Last Assessment & Plan: Patient has constipation for the last 10 days, she has been taking clarelax, she is passing a lot fo gas and ahas a lot of belching and heart burn. 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 She does not have sputum., No fevers. Constipation 02/17/2014 03/17/2016 Last Assessment & Plan: Patient has constipation for the last 10 days, she has been taking clarelax, she is passing a lot fo gas and ahas a lot of belching and heart burn. 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 She does not have sputum., No fevers. Constipation 02/17/2014 03/17/2016 Last Assessment & Plan: Patient has constipation for the last 10 days, she has been taking clarelax, she is passing a lot fo gas and ahas a lot of belching and heart burn. 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 She does not have sputum., No fevers. Constipation 02/17/2014 03/17/2016 Last Assessment & Plan: Patient has constipation for the last 10 days, she has been taking clarelax, she is passing a lot fo gas and ahas a lot of belching and heart burn. 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 She does not have sputum., No fevers. Constipation 02/17/2014 03/17/2016 Last Assessment & Plan: Patient has constipation for the last 10 days, she has been taking clarelax, she is passing a lot fo gas and ahas a lot of belching and heart burn. documented as of this encounter (statuses as of 11/19/2021) [facility] History of Past illness Narrative* Problem Noted Date Resolved Date Misperception of sleep state 09/03/2015 Overview: PSG done 2015 Allergic conjunctivitis of both eyes 06/11/2015 03/17/2016 Ulnar neuropathy of left upper extremity 015 03/17/2016 Sinusitis 02/17/2014 03/17/2016 Last Assessment & Plan: She has facial pain, and pressure on the maxillary region, she is also having tingling, and drainage. She does not have sputum., No fevers. Constipation 02/17/2014 03/17/2016 Last Assessment & Plan: Patient has constipation for the last 10 days, she has been taking clarelax, she is passing a lot fo gas and ahas a lot of belching and heart burn. 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 She does not have sputum., No fevers. Constipation 02/17/2014 03/17/2016 Last Assessment & Plan: Patient has constipation for the last 10 days, she has been taking clarelax, she is passing a lot fo gas and ahas a lot of belching and heart burn. 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 She does not have sputum., No fevers. Constipation 02/17/2014 03/17/2016 Last Assessment & Plan: Patient has constipation for the last 10 days, she has been taking clarelax, she is passing a lot fo gas and ahas a lot of belching and heart burn. 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 She does not have sputum., No fevers. Constipation 02/17/2014 03/17/2016 Last Assessment & Plan: Patient has constipation for the last 10 days, she has been taking clarelax, she is passing a lot fo gas and ahas a lot of belching and heart burn. documented as of this encounter (statuses as of 06/29/2022) [facility] of Past illness Narrative* Problem Noted Date Resolved Date Misperception of sleep state 09/03/2015 Overview: PSG done 2015 Allergic conjunctivitis of both eyes 06/11/2015 03/17/2016 Ulnar neuropathy of left upper extremity 015 03/17/2016 Sinusitis 02/17/2014 03/17/2016 Last Assessment & Plan: She has facial pain, and pressure on the maxillary region, she is also having tingling, and drainage. She does not have sputum., No fevers. Constipation 02/17/2014 03/17/2016 Last Assessment & Plan: Patient has constipation for the last 10 days, she has been taking clarelax, she is passing a lot fo gas and ahas a lot of belching and heart burn. 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 She does not have sputum., No fevers. Constipation 02/17/2014 03/17/2016 Last Assessment & Plan: Patient has constipation for the last 10 days, she has been taking clarelax, she is passing a lot fo gas and ahas a lot of belching and heart burn. 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 She does not have sputum., No fevers. Constipation 02/17/2014 03/17/2016 Last Assessment & Plan: Patient has constipation for the last 10 days, she has been taking clarelax, she is passing a lot fo gas and ahas a lot of belching and heart burn. documented as of this encounter (statuses as of 07/28/2022) [facility] Migraine with aura and without status migrainosus, not intractable- Primary Migraine with aura, without mention of intractable migraine without mention of status migrainosus Chronic daily headache Headache [facility] Encounter for screening mammogram for breast cancer [facility] Diagnosis Mixed headache- Primary Headache Sleep apnea-like behavior Chronic insomnia Insomnia, unspecified Anxiety Anxiety state, unspecified Depression, unspecified depression type [facility] Chronic intractable headache, unspecified headache type- Primary [facility] Diagnosis Obstructive sleep apnea (adult) (pediatric)- Primary Sleep related hypoxia Idiopathic sleep related nonobstructive alveolar hypoventilation [facility] Routine medical exam- Primary Routine general medical examination at a health care facility Special screening for malignant neoplasms, colon Screening for cervical cancer Screening for malignant neoplasm of the cervix Screening for human papillomavirus (HPV) Special screening examination for human papillomavirus (HPV) Screening, lipid Screening for lipoid disorders Screening for diabetes mellitus Migraine with aura and without status migrainosus, not intractable Migraine with aura, without mention of intractable migraine without mention of status migrainosus Chronic daily headache Headache GERRI (obstructive sleep apnea) Obstructive sleep apnea (adult) (pediatric) documented in this encounter [facility] for referral (narrative)* Diagnostic Procedure Only (Routine) - Pending Review Specialty Diagnoses / Procedures Referred By Mary alvarenga Referred To Contact [facility] Diagnoses Encounter for screening mammogram for breast cancer Procedures RC SCREENING SCREENING MAMMOGRAPHY BI 2-VIEW BREAST INC Seymour Pearson MD [address] [place] [address] [facility] [address] [place] [address] Referral ID Status Reason Start Date Expiration Date Visits Requested Visits Authorized [id number] Pending Review Auto-Generat ed Referral 08/21/2021 09/20/2022 1 1 [facility] for referral (narrative)* Outpatient Procedure (Routine) - Pending Review Specialty Diagnoses / Procedures Referred By Mary alvarenga Referred [facility] Contact [facility] Diagnoses Special screening for malignant neoplasms, colon Procedures COLONOSCOPY SCREENING COLONOSCOPY FLX DX W/COLLJ SPEC WHEN Seymour Kim MD [address] [place] [id number] [facility] [place] [address] [place] [address] Referral ID Status Reason Start Date Expiration Date Visits Requested Visits Authorized [id number] Pending Review Auto-Generat ed Referral 06/17/2022 06/18/2023 1 1 [facility] for referral (narrative)* Diagnostic Procedure Only (Routine) - Pending Review Specialty Diagnoses / Procedures Referred By Mary alvarenga Referred To Contact [facility] Diagnoses Encounter for screening mammogram for breast cancer Procedures RC SCREENING SCREENING MAMMOGRAPHY BI 2-VIEW BREAST INC Seymour Pearson MD [address] [place] [address] [facility] [address] [place] [address] Referral ID Status Reason Start Date Expiration Date Visits Requested Visits Authorized [id number] Pending Review Auto-Generat ed Referral 07/23/2022 08/22/2023 1 1 [facility] Advance Directives No Advanced Directives Records FoundDocuments on File Type Date Recorded 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 Advance Directive(s) Advance Directive(s) 04/20/2017 10:19 AM Documents on File Type Date Recorded 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 Advance Directive(s) Advance Directive(s) 04/20/2017 10:19 AM Reason for Referral Specialty Diagnoses / Procedures Referred By Contac t Referred To Contact Neurology Diagnoses Migraine with aura and without status migrainosus, not intractable Chronic daily headache Procedures CONSULT TO NEUROLOGY OFFICE/OUTPATIENT [facility] 60-74 MINUTES Seymour Cote MD [address] [place] [address] Luna Torres MD [address] [place] [address] Referral ID Status Reason Start Date Expiration Date Visits Requested Visits Authorized [id number] Authorized PCP Requested Referral 06/07/2021 06/07/2022 1 1 Specialty Diagnoses / Procedures Referred By Contac t Referred To Contact Diagnoses Anxiety Depression, unspecified depression type Procedures CONSULT TO PSYCHIATRY OFFICE/OUTPATIENT [facility] 60-74 MINUTES Davie Ling Jr., MD [address] [facility] [address] [place] [address] Referral ID Status Reason Start Date Expiration Date Visits Requested Visits Authorized [id number] Pending Review PCP Requested Referral 09/06/2021 09/06/2022 1 1 Specialty Diagnoses / Procedures Referred By Contac t Referred To Contact [facility] Diagnoses Sleep apnea-like behavior Procedures HOME SLEEP APNEA TEST (HSAT) SLEEP STD AIRFLOW HRT RATE&O2 SAT EFFORT UNATT Davie Ling Jr., MD [address] [facility] [address] [place] [address] [facility] [place] [facility] [place] [address] Referral ID Status Reason Start Date Expiration Date Visits Requested Visits Authorized [id number] Authorized Auto-Generat ed Referral 09/06/2021 09/06/2022 1 1 Specialty Diagnoses / Procedures Referred By Contac t Referred To Contact Neurology Diagnoses Chronic intractable headache, unspecified headache type Procedures CONSULT TO NEUROLOGY OFFICE/OUTPATIENT NEW HIGH MDM 60-74 MINUTES Davie Ling Jr., MD [address] [facility] [address] [place] [address] Referral ID Status Reason Start Date Expiration Date Visits Requested Visits Authorized [id number] Pending Review PCP Requested Referral 09/09/2021 09/09/2022 1 1 Summary Purpose Family History No Family History Records Found Additional Source Comments Source Comments (unrecognize d section and content) In the event this informatio n is protected by the Federal Confidentiality of Alcohol and Drug Abuse Patient Records regulations: The Federal rules restrict any use of the information to criminally investigate or prosecute any alcohol or drug abuse patient.[facility] the event this information is protected by the Federal Confidentiality of Alcohol and Drug Abuse Patient Records regulations: The Federal rules restrict any use of the information to criminally investigate or prosecute any alcohol or drug abuse patient.[facility] the event this information is protected by the Federal Confidentiality of Alcohol and Drug Abuse Patient Records regulations: The Federal rules restrict any use of the information to criminally investigate or prosecute any alcohol or drug abuse patient.[facility] the event this information is protected by the Federal Confidentiality of Alcohol and Drug Abuse Patient Records regulations: The Federal rules restrict any use of the information to criminally investigate or prosecute any alcohol or drug abuse patient.[facility] the event this information is protected by the Federal Confidentiality of Alcohol and Drug Abuse Patient Records regulations: The Federal rules restrict any use of the information to criminally investigate or prosecute any alcohol or drug abuse patient.[facility] the event this information is protected by the Federal Confidentiality of Alcohol and Drug Abuse Patient Records regulations: The Federal rules restrict any use of the information to criminally investigate or prosecute any alcohol or drug abuse patient.[facility] the event this information is protected by the Federal Confidentiality of Alcohol and Drug Abuse Patient Records regulations: The Federal rules restrict any use of the information to criminally investigate or prosecute any alcohol or drug abuse patient.[facility] the event this information is protected by the Federal Confidentiality of Alcohol and Drug Abuse Patient Records regulations: The Federal rules restrict any use of the information to criminally investigate or prosecute any alcohol or drug abuse patient.[facility] the event this information is protected by the Federal Confidentiality of Alcohol and Drug Abuse Patient Records regulations: The Federal rules restrict any use of the information to criminally investigate or prosecute any alcohol or drug abuse patient.[facility] the event this information is protected by the Federal Confidentiality of Alcohol and Drug Abuse Patient Records regulations: The Federal rules restrict any use of the information to criminally investigate or prosecute any alcohol or drug abuse patient.[facility] the event this information is protected by the Federal Confidentiality of Alcohol and Drug Abuse Patient Records regulations: The Federal rules restrict any use of the information to criminally investigate or prosecute any alcohol or drug abuse patient.[facility] the event this information is protected by the Federal Confidentiality of Alcohol and Drug Abuse Patient Records regulations: The Federal rules restrict any use of the information to criminally investigate or prosecute any alcohol or drug abuse patient.[facility] the event this information is protected by the Federal Confidentiality of Alcohol and Drug Abuse Patient Records regulations: The Federal rules restrict any use of the information to criminally investigate or prosecute any alcohol or drug abuse patient.[facility] the event this information is protected by the Federal Confidentiality of Alcohol and Drug Abuse Patient Records regulations: The Federal rules restrict any use of the information to criminally investigate or prosecute any alcohol or drug abuse patient.[facility] the event this information is protected by the Federal Confidentiality of Alcohol and Drug Abuse Patient Records regulations: The Federal rules restrict any use of the information to criminally investigate or prosecute any alcohol or drug abuse patient.[facility] the event this information is protected by the Federal Confidentiality of Alcohol and Drug Abuse Patient Records regulations: The Federal rules restrict any use of the information to criminally investigate or prosecute any alcohol or drug abuse patient.[facility] the event this information is protected by the Federal Confidentiality of Alcohol and Drug Abuse Patient Records regulations: The Federal rules restrict any use of the information to criminally investigate or prosecute any alcohol or drug abuse patient.[facility] Care Teams (unrecognized sec tion and content) Casing In Line Feeder Relationship Specialty Start Date End Date Seymour Cote MD [address] [place], [place] [id number] PCP - General Internal Medicine 08/26/13 Casing In Line Feeder Relationship Specialty Start Date End Date Seymour Cote MD [address] [place] [address] PCP - General Internal Medicine 08/26/13 Casing In Line Feeder Relationship Specialty Start Date End Date Seymour Cote MD [facility] [address] PCP - General Internal Medicine 08/26/13 Casing In Line Feeder Relationship Specialty Start Date End Date Seymour Cote MD [address] [place] [address], [place] [address] PCP - General Internal Medicine 08/26/13 Casing In Line Feeder Relationship Specialty Start Date End Date Seymour Cote MD [address] [place] [address] [place] [address] PCP - General Internal Medicine 08/26/13 Casing In Line Feeder Relationship Specialty Start Date End Date Seymour Cote MD [address] [place] [address], [place] [address] PCP - General Internal Medicine 08/26/13 Casing In Line Feeder Relationship Specialty Start Date End Date Seymour Cote MD [address] [place] [address], [place] [address] PCP - General Internal Medicine 08/26/13 Casing In Line Feeder Relationship Specialty Start Date End Date Seymour Cote MD [address] [place] [address] [place] [address] PCP - General Internal Medicine 08/26/13 Casing In Line Feeder Relationship Specialty Start Date End Date Seymour Cote MD [address] [place] [address] [place] [address] PCP - General Internal Medicine 08/26/13 Casing In Line Feeder Relationship Specialty Start Date End Date Seymour Cote MD [address] [place] [address] [place] [address] PCP - General Internal Medicine 08/26/13 Casing In Line Feeder Relationship Specialty Start Date End Date Seymour Cote MD [address] [place] [address] PCP - General Internal Medicine 08/26/13 Casing In Line Feeder Relationship Specialty Start Date End Date Seymour Cote MD [address] [place], [place] [id number] PCP - General Internal Medicine 08/26/13 Reason for Visit (unrecogniz ed section and content) Specialty Diagnoses / Procedures Referred By Contac t Referred To Contact Neurology Diagnoses Migraine with aura and without status migrainosus, not intractable Chronic daily headache Procedures CONSULT TO NEUROLOGY OFFICE/OUTPATIENT [facility] 60-74 MINUTES Seymour Cote MD [address] [place] [address] Luna Torres MD [address] [place] [address] Referral ID Status Reason Start Date Expiration Date V isits Requested Visits Authorized [id number] Closed PCP Requested Referral 06/07/2021 06/07/2022 1 1 Reason Comments Sleep study issue Neuro refferral issue Reason Comments HSAT Check In (Adult) Reason Comments Patient Question Reason Comments Orders Reason Comments Physical Discuss sleep disord ers and headaches INFORMATION SOURCE (unrecogn ized section and content) FOR RECORDS PERTAINING TO PATIENTS WHO ARE OR HAVE BEEN ENROLLED IN A CHEMICAL DEPENDENCY/SUBSTANCEABUSE PROGRAM, SOME INFORMATION MAY BE OMITTED. This clinical summary was aggregated from multiple sources. Caution should be exercised in using it in the provision of clinical care. This summary normalizes information from multiple sources, and as a consequence, information in this document may materially change the coding, format and clinical context of patient data. In addition, data may be omitted in some cases. CLINICAL DECISIONS SHOULD BE BASED ON THE PRIMARY CLINICAL RECORDS. [employer] provides no warranty or guarantee of the accuracy or completeness of information in this document.
== END | disposition home or self-care (01) ==
PROVIDERS: PCP Internal Medicine; Referring Provider Nurse Practitioner Women's Health; Visit Provider Nurse Practitioner Women's Health
DX: N93.9 Abnormal uterine and vaginal bleeding, unspecified (principal)
CPT/HCPCS: 88305

== ENCOUNTER → 2023-04-22 | Outpatient (CLI) | payer OTHER, SELFPAY ==
--- NOTE | 2023-04-22 11:57 | US_ITS ---
INDICATION: Abnormal postmenopausal bleeding. EXAMINATION: Ultrasound US Pelvis Non OB Complete With Transvaginal Imaging TECHNIQUE: Transabdominal and transvaginal pelvic ultrasound was performed. Grayscale, spectral waveform, and color flow Doppler evaluation of the adnexa. COMPARISON: No relevant prior comparison study available FINDINGS: UTERUS: Anteverted. The uterus measures 9.7 x 6.7 x 5.8 cm. The uterus is heterogeneous. No focal lesion is definitely seen. The endometrial stripe measures 14 mm in AP diameter which is thickened for postmenopausal patient. RIGHT OVARY: The right ovary measures 2.1 x 2 x 1.6 cm. Non-enlarged, normal echogenicity. There is normal arterial inflow and venous outflow present in the right ovary. LEFT OVARY: The left ovary measures 3.1 x 1.6 x 1 cm. Non-enlarged, normal echogenicity. There is normal arterial inflow and venous outflow present in the left ovary. FREE FLUID: None. US/Pelvic w/ Transvaginal IMPRESSION: Abnormal endometrial thickening for a postmenopausal patient. Endometrial abnormality cannot be excluded. Electronically Signed: Milton Mccall MD at 13:42 EST ,
--- NOTE | 2023-04-22 11:57 | BI_ITS ---
MAMMOGRAPHY - BILATERAL SCREENING REASON FOR EXAM: Female, 58 years old. Routine annual screening examination. PERTINENT HISTORY: Non-contributory. TECHNIQUE: Digital bilateral breast jayden (3D mammographic acquisition) in the CC and MLO projections. 2-D mediolateral oblique (MLO) and craniocaudad (CC) views of both breasts were obtained. CAD: Full Field Digital Mammography with Computer Added Detection was performed. COMPARISON: Comparison is made with prior study dated April 26, 2015. FINDINGS: Breast Composition: There are scattered areas of fibroglandular density. There are no dominant masses or suspicious calcifications. No other significant abnormalities are identified. There has been no significant change since the prior study. BI/SCRN MAMM (CAD)W/JAYDEN BILAT IMPRESSION: Stable bilateral screening mammogram. Yearly follow-up mammogram recommended. (A) ASSESSMENT CATEGORY: BIRADS Category 1: Negative. A letter regarding these results will be sent to the patient by the facility within 30 days. Approximately 10% of breast cancers are not detected by mammography. A normal mammogram should not delay biopsy of a clinically suspicious abnormality. [id number] Electronically Signed: Eagle Lyon MD at 14:54 EST ,
--- OUTSIDE RECORDS SUMMARY | 2023-04-22 12:21 | XMS RPT_ITS | CCD ---
Author Name Unknown Address [address] [place] [address] Organization [facility] Care Team Providers Care 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 Name Role Phone Seymour Cote MD Primary Care Provider SEYMOUR COTE Referring Unavailable SEYMOUR COTE Primary Care Unavailable SEYMOUR COTE Primary Care Unavailable SEYMOUR COTE Attending Unavailable Allergies Allergy Classification Reported Allergen(s) Allergy Type Date of Onset Reaction(s) Facility (18 sources) Cat; Translations: [CATS] Allergy to substance 6 Unknown [facility] (18 sources) Cetirizine; Translations: [CETIRIZINE HCL] Drug Allergy 8 Other: See Comments [facility] Work Phone: (18 sources) Dog; Translations: [DOGS] Allergy to substance 6 Unknown [facility] (18 sources) Seasonal allergy; Translations: [SEASONAL ALLERGIES] Allergy to substance 6 Unknown [facility] (18 sources) Sulfonamides (Antibiotic); Translations: [SULFA (SULFONAMIDE ANTIBIOTICS)] Drug Allergy 1 Unknown [facility] Medications Completed/Discontinued Medications Medication Drug Class(es) Dates Sig (Normalized) Sig (Original) [id number] 200 actuat albuterol 0.09 mg/actuat metered dose [...] 162 cm Seymour Cote MD Work Phone: [facility] 06-17-2022 13:30-0400 Body temperature 98.1 [degF] Seymour Cote MD Work Phone: [facility] 06-17-2022 13:30-0400 Body weight 80.2 kg Seymour Cote MD Work Phone: [facility] 06-17-2022 13:30-0400 Diastolic blood pressure 78 mm[Hg] Seymour Cote MD Work Phone: [facility] 06-17-2022 13:30-0400 Heart rate 71 /min Seymour Cote MD Work Phone: [facility] 06-17-2022 13:30-0400 Respiratory rate 18 /min Seymour Cote MD Work Phone: [facility] 06-17-2022 13:30-0400 SaO2% (BldA) [Mass fraction] 97 % Seymour Cote MD Work Phone: [facility] 06-17-2022 13:30-0400 Systolic blood pressure 132 mm[Hg] Seymour Cote MD Work Phone: [facility] 09-06-2021 13:06-0400 Body temperature 97.81 [degF] Davie Ling Jr., MD Work Phone: [facility] 09-06-2021 13:06-0400 Body weight 79.38 kg Davie Ling Jr., MD Work Phone: [facility] 09-06-2021 13:06-0400 Diastolic blood pressure 64 mm[Hg] Davie Ling Jr., MD Work Phone: [facility] 09-06-2021 13:06-0400 Heart rate 81 /min Davie Ling Jr., MD Work Phone: [facility] 09-06-2021 13:06-0400 Respiratory rate 18 /min Davie Ling Jr., MD Work Phone: [facility] 09-06-2021 13:06-0400 SaO2% (BldA) [Mass fraction] 96 % Davie Ling Jr., MD Work Phone: [facility] 09-06-2021 13:06-0400 Systolic blood pressure 116 mm[Hg] Davie Ling Jr., MD Work Phone: [facility] Encounters Encounter Date Encounter Type [...] Author Start: 07-19-2027 LIPID SCREEN LIPID SCREEN [facility] Start: 06-18-2027 HPV TESTING HPV TESTING [facility] Start: 06-18-2027 PAP TESTING PAP TESTING [facility] Start: 07-18-2025 DIABETES SCREEN DIABETES SCREEN [facility] Start: 09-20-2023 DIABETES SCREEN DIABETES SCREEN [facility] Start: 06-18-2023 COVID-19 VACCINE (3 - Booster for Pfizer series) COVID-19 VACCINE (3 - Booster for Pfizer series) [facility] Immunizations Immunization Date Immunization Notes Care Provider Fa cility 04-12-2021 COVID-19 vaccine, ag e 12+ yr (PFIZER-BIONTECH - CABALLERO TOP) Seymour Cote MD Work Phone: [facility] Work Phone: 01-25-2010 tetanus toxoid, redu kari diphtheria toxoid, and acellular pertussis vaccine, adsorbed Seymour Cote MD Work Phone: [facility] Payers Date Payer Category Payer Unknown [employer] [place] [employer] [place] [employer] [id number] 2021-Present [phone] [address] [place] [address] PPO [id number] 2021 Unknown [id number] 2017 Unknown [id number] Social History Date Type Detail Facility Start: 11-27-2010 End: 06-26-2015 Tobacco smoking status NHIS Ex-smoker [facility] History of tobacco use Cigarette Smoker [facility] Start: 11-27-2010 End: 06-26-2015 Tobacco use and exposure Smokeless tobacco non-user [facility] Start: 09-19-2020 End: 06-17-2022 Alcohol intake Current drinker of alcohol (finding) [facility] Start: 09-19-2020 End: 06-17-2022 Alcohol intake [facility] Start: 10-09-2019 End: 06-16-2022 History SDOH Alcohol Frequency 3 [facility] Start: 10-09-2019 End: 06-16-2022 History SDOH Alcohol Std Drinks 1 [facility] Start: 04-20-2017 History SDOH Alcohol Comment monthly [facility] Start: 10-09-2019 End: 06-16-2022 History SDOH Social Connections Phone 2 [facility] Start: 10-09-2019 End: 06-16-2022 History SDOH Social Connections Get Together 5 [facility] Start: 10-11-2019 End: 11-26-2021 History SDOH Financial 4 [facility] Start: 10-09-2019 Education 15 [facility] Start: 11-27-2010 Tobacco Comment quit 10 years ago [facility] Start: 1965 Sex Assigned At Female [facility] Start: 06-28-2021 End: 11-06-2021 Exposure to SARS-CoV-2 (event) Not sure [facility] History of tobacco use Current smoker [facility] Clinical Notes 09-03-2015 to 07-25-2022 Telephone Encounter - Meera Chapman APRN.PROPERTY MANAGEMENT SUPERVISOR - 07/25/2022 4:31 PM EDTTelephone Encounter - Davie Ling Jr., MD - 06/29/2022 9:54 AM EDTPatient Noémiguel angel Zhane - 10/23/2021 11:54 AM EDT Note Date & Type Note Facility 07-25-2022 Miscellaneous Notes The 10-year ASCVD risk score (Sarath DK, et al., 2019) is: 3.8% Values used to calculate the score: Age: 57 years Sex: Female Is Non- : No Diabetic: No Tobacco smoker: No Systolic Blood Pressure: 132 mmHg Is BP treated: No HDL Cholesterol: 33 mg/dL Total Cholesterol: 208 mg/dL documented in this encounter [facility] 07-23-2022 Note Patient Outreach (IN TMMN) JOSEFA RUTHERFORD ([id number]) 1965 F Date Time Provider Department 07/23/22 [...] dreams Date Reviewed: 06/17/2022 Reviewed by: Anabela Saleh LPN - Fully Assessed Visit Diagnosis:Encounter for screening mammogram for breast cancer [Z12.31] Order(s):[facility] SCREENING [[id number]] Order #: [id number] FUTURE Prescriptions as of 07/28/2022 - gabapentin [...] Encounter Status:Closed by KIMBER, PRODUSER on 07/28/22 [facility] 06-29-2022 Miscellaneous Notes Unclear if this was to be scheduled in [place] or [facility] given home location. Please contact our schedulers as well as [facility] to see if they have yet to reach out to patient. Davie Ling MD documented in this encounter [facility] 06-19-2022 Miscellaneous Notes Nubefy message sent to pt asking if she wants to do the pap titration study. Marylu Willis LPN documented in this encounter [facility] 06-17-2022 Note HNO ID: [id number] Author: Seymour Cote MD Service: ? Author Type: Physician Type: Progress Notes Filed: 07/20/2022 10:23 PM Note Text: This note was created using [employer]ius [employer]. Subjective Josefa Rutherford is a 57 year old female. HISTORY Josefa Rutherford is a 57 year old lady here for yearly exam and follow up appointment. Reviewed issue with the recent HST. No CPAP titration done yet--some issues with trying to get it scheduled and being told study not covered. [facility] insurance nurse said is covered. Noted that [...] and meds adjusted (more content not included)... [facility] 06-17-2022 Instructions Seymour Cote MD - [...] please call: Dr. Oshea or Dr. Antoine [phone] Dorie Rosado [phone] Dr. Wren [phone] [facility] nurses [phone] documented in this encounter [facility] 06-17-2022 History of Presen t illness Narrative This note was created using [employer]. Subjective Josefa Rutherford is a 57 year old female. HISTORY Josefa Rutherford is a 57 year old lady here for yearly exam and follow up appointment. Reviewed issue with the recent HST. No CPAP titration done yet--some issues with trying to get it scheduled and being told study not covered. [facility] insurance nurse said is covered. Noted that [...] exercise and adequate sleep. Seymour Cote MD [facility] OPEN ACCESS QUESTIONNAIRE 1. Are you [...] Please send all open access questionnaires to [facility] Pool #[id number] documented in this encounter [facility] 11-27-2021 Miscellaneous Notes Received voicemail 11-27-21 at 1:21 PM. Yes my name is Altagracia Rutherford. My phone number is [phone]. I am the patient. My birthday is [...] 2021 3:15 PM documented in this encounter [facility] 11-20-2021 Miscellaneous Notes Please assist pt in scheduling appointment for PAP Titration. Thank you. LAVON Santana I have just received message and order placed for PAP titration. Davie Ling MD Patient agreeable to CPAP titration. Patient states she's been experiencing some dyspnea since HSAT. Mimi Elliott MA documented in this encounter [facility] 11-19-2021 Miscellaneous Notes PLEASE SEE MESSAGE 11/11. Mimi Elliott MA documented in this encounter [facility] 11-06-2021 Miscellaneous Notes Pt updated through [facility] of upcoming appointments, headache clinic info, and recommended in keeping scheduled appointments. LAVON Santana documented in this encounter [facility] 10-23-2021 History of Presen t [...] study we will call to reschedule. Nomad: [id number] Date: 10/17/21 [employer]ex Mailout Tracking Number: [id number] [employer] Return Tracking Number: [id number] September 16, 2021 An order has been received for Home Sleep Apnea Test (HSAT) from Dr. Davie Ling Jr., MD, A. Sleep Center Staff/Blankmaker Staff Orders. Visit prep complete - Please refer to the sleep study order (under procedures tab) for protocol details and special instructions. The sleep study is scheduled for 09/25/2021. Insurance: Payor: [employer] / Plan[place] [employer] F[employer] INSURED / Product Type: PPO / Payor/Plan Subscr Sex Relation Sub. Ins. ID Effective Group Num 1. [employer] - S* JOSEFA RUTHERFORD 1965 Female Self [id number] 03/30/21 [address] [place] Rodgers documented in this encounter [facility] 09-23-2021 Miscellaneous Notes Called the patient's insurance company [employer] at ph# [phone]. Spoke with Evita Ref# for the phone call is: [id number] 09/23/21 The home sleep study CPT code 05459 doesn't require an approval. Dr. Luis Wong (provided his NPI#) is a headache neurologist and is in network and doesn't require any approval. Notified the patient and she was upset saying they require approval and then she hung up. Called the patient and discussed what the insurance is requesting. The patient was told that the Home Sleep Study requires approval. [facility] told the patient that no request has been sent. The referral notes say no pre-cert is required. Tried to call the insurance and long wait time. Will keep trying to reach insurance. Customer Service Ph# prior auth [phone] Patient reports her insurance informed her the [...] for a list of doctor names, so [facility] can tell patient who is covered. Asking Dr. Ling to please advise patient. documented in this encounter [facility] 09-06-2021 History of Presen t [...] had a prior PSG in [address] [facility] that per report was unremarkable. Patient appears [...] dysarthria; comprehension, naming, repetition intact. Short and chcf memory intact. Fund of knowledge grossly normal [...] which included preparing to see the patient, [id number] patient care, completing clinical documentation, obtaining and/or reviewing separately obtained history, performing a medically appropriate examination, counseling and educating the patient/family/caregiver, ordering medications, tests, or procedures, independently interpreting results (not separately reported) and communicating results to the patient/family/caregiver. PDMP website checked and validated. All prescriptions have been APPROPRIATELY filled. No suspicious activity was identified. 09/06/2021 by Davie Ling MD documented in this encounter [facility] 07-19-2021 Miscellaneous Notes Can you [...] Cote to address documented in this encounter [facility] 06-22-2021 Miscellaneous Notes Called pt and left her a voicemail. 1st attempt. ALBINO Barton referral placed 06/07, please help with scheduling documented in this encounter [facility] documented as of this encounter (statuses as of 06/22/2021) [facility] History of Past illness Narrative* [...] of this encounter (statuses as of 07/25/2021) [facility] of Past illness Narrative* [...] of this encounter (statuses as of 08/26/2021) [facility] of Past illness Narrative* [...] of this encounter (statuses as of 09/06/2021) [facility] of Past illness Narrative* [...] of this encounter (statuses as of 09/09/2021) [facility] of Past illness Narrative* [...] of this encounter (statuses as of 09/23/2021) [facility] of Past illness Narrative* [...] of this encounter (statuses as of 09/26/2021) [facility] of Past illness Narrative* [...] of this encounter (statuses as of 10/23/2021) [facility] of Past illness Narrative* [...] of this encounter (statuses as of 11/06/2021) [facility] of Past illness Narrative* [...] of this encounter (statuses as of 11/19/2021) [facility] of Past illness Narrative* [...] of this encounter (statuses as of 11/20/2021) [facility] of Past illness Narrative* [...] of this encounter (statuses as of 11/27/2021) [facility] of [facility] illness Narrative* [...] of this encounter (statuses as of 06/19/2022) [facility] Narrative* [...] of this encounter (statuses as of 06/29/2022) [facility] Narrative* [...] of this encounter (statuses as of 07/21/2022) [facility] Narrative* [...] of this encounter (statuses as of 07/25/2022) [facility] of [facility] illness Narrative* [...] of this encounter (statuses as of 07/28/2022) [facility] Migraine with aura and without status migrainosus, not intractable- Primary Migraine with aura, without mention of intractable migraine without mention of status migrainosus Chronic daily headache Headache [facility] Encounter for screening mammogram for breast cancer [facility] Diagnosis Mixed headache- Primary Headache Sleep apnea-like behavior Chronic insomnia Insomnia, unspecified Anxiety Anxiety state, unspecified Depression, unspecified depression type [facility] Diagnosis Chronic intractable headache, unspecified headache type- Primary [facility] Diagnosis Obstructive sleep apnea (adult) (pediatric)- Primary Sleep related hypoxia Idiopathic sleep related nonobstructive alveolar hypoventilation [facility] Routine medical exam- [...] apnea (adult) (pediatric) documented in this encounter [facility] for referral (narrative)* Diagnostic Procedure Only (Routine) - Pending Review Specialty Diagnoses / Procedures Referred By Mary alvarenga Referred To Contact [facility] Diagnoses Encounter for screening mammogram for breast cancer Procedures RC SCREENING SCREENING MAMMOGRAPHY BI 2-VIEW BREAST INC Seymour Pearson MD [address] [place] [address] [facility] [address] [place] [address] Referral ID Status Reason Start Date Expiration Date Visits Requested Visits Authorized [id number] Pending Review Auto-Generat ed Referral 08/21/2021 09/20/2022 1 1 [facility] for referral (narrative)* Outpatient Procedure (Routine) - Pending Review Specialty Diagnoses / Procedures Referred By Mary alvarenga Referred To Contact [facility] Diagnoses Special screening for malignant neoplasms, colon Procedures COLONOSCOPY SCREENING COLONOSCOPY FLX DX W/COLLJ SPEC WHEN Seymour Kim MD [address] [place] [address] [facility] [place] [address] [place] [address] Referral ID Status Reason Start Date Expiration Date Visits Requested Visits Authorized [id number] Pending Review Auto-Generat ed Referral 06/17/2022 06/18/2023 1 1 [facility] for referral (narrative)* Diagnostic Procedure Only (Routine) - Pending Review Specialty Diagnoses / Procedures Referred By Mary alvarenga Referred To Contact [facility] Diagnoses Encounter for screening mammogram for breast cancer Procedures RC SCREENING SCREENING MAMMOGRAPHY BI 2-VIEW BREAST INC Seymour Pearson MD [address] [place] [address] [facility] [address] [place] [address] Referral ID Status Reason Start Date Expiration Date Visits Requested Visits Authorized [id number] Pending Review Auto-Generat ed Referral 07/23/2022 08/22/2023 1 1 [facility] Advance Directives No Advanced Directives Records FoundDocuments on File Type Date Recorded Patient Yarn Packer Expl anation Advance Directive(s) Advance Directive(s) 04/20/2017 10:19 AM Documents on File Type Date Recorded Patient Yarn Packer Expl anation Advance Directive(s) Advance Directive(s) 04/20/2017 10:19 AM Reason for Referral Specialty Diagnoses / Procedures Referred By Contac t Referred To Contact Neurology Diagnoses Migraine with aura and without status migrainosus, not intractable Chronic daily headache Procedures CONSULT TO NEUROLOGY OFFICE/OUTPATIENT [facility] 60-74 MINUTES Seymour Cote MD [address] [place] [address] Luna Torres MD [address] [place] [address] Referral ID Status Reason Start Date Expiration Date Visits Requested Visits Authorized [id number] Authorized PCP Requested Referral 06/07/2021 06/07/2022 1 1 Specialty Diagnoses / Procedures Referred By Contac t Referred To Contact Diagnoses Anxiety Depression, unspecified depression type Procedures CONSULT TO PSYCHIATRY OFFICE/OUTPATIENT [facility] 60-74 MINUTES Davie Ling Jr., MD [address] [facility] [address] [place] [address] Referral ID Status Reason Start Date Expiration Date Visits Requested Visits Authorized [id number] Pending Review PCP Requested Referral 09/06/2021 09/06/2022 1 1 Specialty Diagnoses / Procedures Referred By Contac t Referred To Contact [facility] Diagnoses Sleep apnea-like behavior Procedures HOME SLEEP APNEA TEST (HSAT) SLEEP STD AIRFLOW HRT RATE&O2 SAT EFFORT UNATT Davie Ling Jr., MD [address] [facility] [address] [place] [address] [facility] [place] [facility] [place] [address] Referral ID Status Reason Start Date Expiration Date Visits Requested Visits Authorized [id number] Authorized Auto-Generat ed Referral 09/06/2021 09/06/2022 1 1 Specialty Diagnoses / Procedures Referred By Contac t Referred To Contact Neurology Diagnoses Chronic intractable headache, unspecified headache type Procedures CONSULT TO NEUROLOGY OFFICE/OUTPATIENT NEW HIGH MDM 60-74 MINUTES Davie Ling Jr., MD [address] [facility] [address] [place] [address] Referral ID Status Reason Start Date Expiration Date Visits Requested Visits Authorized [id number] Pending Review PCP Requested Referral 09/09/2021 09/09/2022 [...] or prosecute any alcohol or drug abuse patient.[facility] the event this information is protected by the Federal Confidentiality of Alcohol and Drug Abuse Patient Records regulations: The Federal rules restrict any use of the information to criminally investigate or prosecute any alcohol or drug abuse patient.[facility] the event this information is protected by the Federal Confidentiality of Alcohol and Drug Abuse Patient Records regulations: The Federal rules restrict any use of the information to criminally investigate or prosecute any alcohol or drug abuse patient.[facility] the event this information is protected by the Federal Confidentiality of Alcohol and Drug Abuse Patient Records regulations: The Federal rules restrict any use of the information to criminally investigate or prosecute any alcohol or drug abuse patient.[facility] the event this information is protected by the Federal Confidentiality of Alcohol and Drug Abuse Patient Records regulations: The Federal rules restrict any use of the information to criminally investigate or prosecute any alcohol or drug abuse patient.[facility] the event this information is protected by the Federal Confidentiality of Alcohol and Drug Abuse Patient Records regulations: The Federal rules restrict any use of the information to criminally investigate or prosecute any alcohol or drug abuse patient.[facility] the event this information is protected by the Federal Confidentiality of Alcohol and Drug Abuse Patient Records regulations: The Federal rules restrict any use of the information to criminally investigate or prosecute any alcohol or drug abuse patient.[facility] the event this information is protected by the Federal Confidentiality of Alcohol and Drug Abuse Patient Records regulations: The Federal rules restrict any use of the information to criminally investigate or prosecute any alcohol or drug abuse patient.[facility] the event this information is protected by the Federal Confidentiality of Alcohol and Drug Abuse Patient Records regulations: The Federal rules restrict any use of the information to criminally investigate or prosecute any alcohol or drug abuse patient.[facility] the event this information is protected by the Federal Confidentiality of Alcohol and Drug Abuse Patient Records regulations: The Federal rules restrict any use of the information to criminally investigate or prosecute any alcohol or drug abuse patient.[facility] the event this information is protected by the Federal Confidentiality of Alcohol and Drug Abuse Patient Records regulations: The Federal rules restrict any use of the information to criminally investigate or prosecute any alcohol or drug abuse patient.[facility] the event this information is protected by the Federal Confidentiality of Alcohol and Drug Abuse Patient Records regulations: The Federal rules restrict any use of the information to criminally investigate or prosecute any alcohol or drug abuse patient.[facility] the event this information is protected by the Federal Confidentiality of Alcohol and Drug Abuse Patient Records regulations: The Federal rules restrict any use of the information to criminally investigate or prosecute any alcohol or drug abuse patient.[facility] the event this information is protected by the Federal Confidentiality of Alcohol and Drug Abuse Patient Records regulations: The Federal rules restrict any use of the information to criminally investigate or prosecute any alcohol or drug abuse patient.[facility] the event this information is protected by the Federal Confidentiality of Alcohol and Drug Abuse Patient Records regulations: The Federal rules restrict any use of the information to criminally investigate or prosecute any alcohol or drug abuse patient.[facility] the event this information is protected by the Federal Confidentiality of Alcohol and Drug Abuse Patient Records regulations: The Federal rules restrict any use of the information to criminally investigate or prosecute any alcohol or drug abuse patient.[facility] the event this information is protected by the Federal Confidentiality of Alcohol and Drug Abuse Patient Records regulations: The Federal rules restrict any use of the information to criminally investigate or prosecute any alcohol or drug abuse patient.[facility] Care Teams (unrecognized sec tion and content) 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 Relationship Specialty Start Date End Date Seymour Cote MD [address] [place], [place] [id number] PCP - General Internal Medicine 08/26/13 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 Relationship Specialty Start Date End Date Seymour Cote MD [address] [place] [address] PCP - General Internal Medicine 08/26/13 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 Relationship Specialty Start Date End Date Seymour Cote MD [facility] [place] [address] PCP - General Internal Medicine 08/26/13 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 Relationship Specialty Start Date End Date Seymour Cote MD [address] [place] [address], [place] [address] PCP - General Internal Medicine 08/26/13 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 Relationship Specialty Start Date End Date Seymour Cote MD [address] [place] [address] [place] [address] PCP - General Internal Medicine 08/26/13 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 Relationship Specialty Start Date End Date Seymour Cote MD [address] [place] [address], [place] [address] PCP - General Internal Medicine 08/26/13 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 Relationship Specialty Start Date End Date Seymour Cote MD [address] [place] [address], [place] [address] PCP - General Internal Medicine 08/26/13 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 Relationship Specialty Start Date End Date Seymour Cote MD [address] [place] [address] [place] [address] PCP - General Internal Medicine 08/26/13 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 Relationship Specialty Start Date End Date Seymour Cote MD [address] [place] [address] [place] [address] PCP - General Internal Medicine 08/26/13 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 Relationship Specialty Start Date End Date Seymour Cote MD [address] [place] [address] [place] [address] PCP - General Internal Medicine 08/26/13 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 Relationship Specialty Start Date End Date Seymour Cote MD [address] [place] [address] PCP - General Internal Medicine 08/26/13 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 Relationship Specialty Start Date End Date Seymour Cote MD [address] [place], [place] [id number] PCP - General Internal Medicine 08/26/13 Reason for Visit (unrecogniz ed section and content) Specialty Diagnoses / Procedures Referred By Contac t Referred To Contact Neurology Diagnoses Migraine with aura and without status migrainosus, not intractable Chronic daily headache Procedures CONSULT TO NEUROLOGY OFFICE/OUTPATIENT [facility] 60-74 MINUTES Seymour Cote MD [address] [place] [address] Luna Torres MD [address] [place] [id number] Referral ID Status Reason Start Date Expiration Date V isits Requested Visits Authorized [id number] Closed PCP Requested Referral 06/07/2021 06/07/2022 1 [...] BE BASED ON THE PRIMARY CLINICAL RECORDS. [employer] provides no warranty or guarantee of the accuracy or completeness of information in this document.
== END | disposition home or self-care (01) ==
PROVIDERS: PCP Internal Medicine; Referring Provider Nurse Practitioner Women's Health; Visit Provider Nurse Practitioner Women's Health
DX: Z12.31 Encounter for screening mammogram for malignant neoplasm of breast (principal); N93.9 Abnormal uterine and vaginal bleeding, unspecified
CPT/HCPCS: 76830; 76856; 77063; 77067

== ENCOUNTER 2023-07-14 09:26 | Day surgery (SDC) | payer OTHER, SELFPAY ==
--- NOTE | 2023-07-09 09:55 | EKG12_ITS ---
Test Reason : PRE OP Blood Pressure : / mmHG Vent. Rate : 066 BPM Atrial Rate : 066 BPM P-R Int : 170 ms QRS Dur : 068 ms QT Int : 388 ms P-R-T Axes : 028 040 021 degrees QTc Int : 406 ms Normal sinus rhythm Normal ECG Confirmed by Ruben Wilson ([id number]), newspaper managing editor LITO OLIVARES ([id number]) on 07/10/2023 7:22:54 AM Referred By: Corie Garcia Confirmed By:Ruben Wilson
[2023-07-09 10:24] LABS: Hematocrit 43.3 % (37-47); Hemoglobin 14.5 g/dL (12.0-15.0); Mean Corp Hgb Conc 33.5 g/dL (32-36); Mean Corpuscular Hgb 31.3 pg (27.0-32.0); Mean Corpuscular Volume 93.5 fL (81-99); Mean Platelet Vol. 9.8 fl (6.2-12.0); Platelet Count 336 K/mm3 (150-450); RBC Distribution Width CV 12.2 % (11.6-14.6); RBC Distribution Width SD 42.2 fl (35.1-43.9); Red Blood Count 4.63 M/mm3 (4.2-5.4); White Blood Count 7.7 K/mm3 (4.4-11.0)
[2023-07-09 10:52] LABS: Anion Gap 1 (5-15); BUN 11 mg/dL (7-18); BUN/Creat Ratio 11.9 RATIO (10-20); Chloride 110 mmol/L (98-107); Creatinine, Serum 0.92 mg/dL (0.55-1.02); EST Glomerular Filtration Rate 66 mL/min (>60); Est Glom Filt Rate - Afr Amer 80 mL/min (>60); Glucose 111 mg/dL (74-106); Potassium 4.1 mmol/L (3.5-5.1); Sodium Level 139 mmol/L (136-145)
[2023-07-14] VITALS (7 sets, daily range): BP systolic 108–127; BP diastolic 50–80; PULSE 65–77; RESP 14–18; TEMP 36–36.6; O2SAT 94–97; BMI 31.0
--- NOTE | 2023-07-14 06:01 | HP.PCM_ITS ---
History and Physical Date of Admission: 07/14/23 [facility] [address] [place] [address] OFFICE VISIT Date of Service: 05/25/23 MR#: [id number] Acct: [id number] Name: JOSEFA RUTHERFORD Rep #: [id number] : 1965 Provider: Dr. 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 Is patient in pain?: No Allergies Sulfa (Sulfonamide Antibiotics) Allergy (Verified 05/25/23 13:03) PT UNSURE OF REACTION Medications pseudoephedrine HCl 30 mg tablet (Sudafed) 30 mg PO Q4-6H PRN 05/25/23 [History Confirmed 05/25/23] Is last menstrual period known: No Post menopausal: Yes Patient : No : No PFSH Surgical History (Updated 04/09/23 @ 09:41 by Mimi George) H/O: Hx of removal of cyst S/p bilateral carpal tunnel release S/P cholecystectomy Family History (Updated 04/09/23 @ 09:43 by Mimi George) Father Cancer PancreaticMother Cancer Liver and Kidney Social History (Updated 04/09/23 @ 09:44 by Mimi George) household members: spouse number of children: 4 current occupational status: unemployed Smoking Status: Never smoker alcohol intake: current alcohol intake frequency: holidays/special occasions only substance use type: does not use seatbelt use: always do you feel safe at home: Yes additional social history: - Tom LIZ surgical consult Details: JOSEFA RUTHERFORD is a 58 year old who presents for postmenopausal bleeding episode. she had a 14 mm lining and had a proliferative biopsy. she only had enough bleeding that she noticed it when she wiped. she passed a few clots, she ahsn't been bleeding anymore. she denies any breast tenderness, some pelvic discomfort. she denies any abdominal pain.co migraines and trouble sleeping. Female Reproductive History Menopausal Symptoms: No night sweats History 6 Elective abortions Hx Para 4 Spontaneous abortions Hx # Term Pregnancies Ectopic pregnancies Hx # Pregnancies Multiple births # of living children 4 Past Pregnancies Del. Date Name GA/Weeks Outcome Route Bth Weight Gen Labor Lgth Anesthesia Del Locatn Provider FOB Unknown Bella 1988 Unknown Tosha 1995 Unknown Rocco 1997 Unknown Karson 2004 ROS Const Constitutional: Denies fatigue, night sweats, weight gain or weight loss ENT ENT: Reports system reviewed and no additional complaints, except as documented Cardio Card: Denies chest pain Resp Resp: Denies cough or dyspnea GI GI: Reports as per HPI; Denies abdominal pain, constipation, nausea or vomiting : Denies nipple discharge, urinary frequency, urinary incontinence, urinary hesitancy, urinary urgency, vaginal discharge, vaginal dryness, vaginal odor or vaginal pruritus Musc Musc: Denies arthralgias, back pain or muscle weakness Skin Skin/Breast: Denies alopecia, change in hair, dry skin, breast mass, breast pain, breast skin changes or nipple discharge Neuro Neuro: Reports system reviewed and no additional complaints, except as documented Psych Psych: Reports system reviewed and no additional complaints, except as documented Endo Endo: Denies cold intolerance, excessive sweating, heat intolerance or polydipsia Frank/Lymph Hematologic/Lymphatic: Denies easy bleeding, Denies easy bruising and Denies lymphadenopathy Exam Const General: cooperative, healthy appearing, comfortable and no acute distress Orientation: alert [facility] Head: normal to inspection and normocephalic Ears: hearing grossly normal bilaterally and external ears normal Nose: external nose normal and nares normal Face and sinus: normal facial exam Neck Neck: normal visual inspection and no lymphadenopathy Thyroid: thyroid normal Chest Chest palpation & inspection: normal inspection of the chest Resp Effort & Inspection: normal respiratory effort Auscultation: clear to auscultation bilaterally Cardio Rate: regular rate Rhythm: regular rhythm Heart Sounds: S1 normal and S2 normal GI Inspection: normal to inspection and non-distended Palpation: soft and no hepatosplenomegaly Musc Other: gross motor intact no deficits, full bilateral strength Skin General: no rashes or lesions noted Neuro General: patient alert, patient awake, moves all extremities and no focal motor deficits Motor: muscle tone normal throughout Extrem General: normal to inspection and no pedal edema Psych Appearance: grossly normal Mental Status: mental status grossly normal Affect: normal affect Speech and Movement: speech and movement normal Coding Level of Care Code Off vis,est,level 4 Diagnoses Postmenopausal bleeding N95.0 Assessment and Plan Assessment and Plan (1) Postmenopausal bleeding: Status: Acute Comment: EMB proliferative. US:lining 14mm. plan d and c hysteroscopy possible symphion Plan After discussing the patient's diagnosis and treatment plan options, patient wishes to proceed with surgical management. I have discussed with the patient the risks, benefits, and alternatives of the procedure which include but are not limited to risks of anesthesia, bleeding, infection, possible damage to bowel, bladder, or surrounding vasculature which could lead to additional surgery to evaluate any complications. Patient agrees to procedure and wishes to proceed. ACOG/uptodate references given for additional information regarding procedure. UPDATE- I have seen the patient and performed any clinically relevant updates to the history and physical exam. Corie Garcia MD
[2023-07-14] MEDS: Lactated Ringers 1,000 ML 15 ML IV (10:21)
--- NOTE | 2023-07-14 11:30 | EMB_PTH ---
PATIENT: JOSEFA RUTHERFORD [place] [facility] [id number] AGE/SX: 58/F ROOM: RE07/14/[address]: Dr. Corie Garcia MD : 1965 BED: DIS: 07/14/2023 SPEC #: [id number] RECD: 07/14/23 13:12 STATUS: RAMAN REStefanie #: [id number] STEFANY: 07/14/23 11:[address]: Corie Garcia DEPT: SURGICAL PATHOLOGY RECD BY: Jael Jean ENTERED: 07/15/23 08:51 SP TYPE: ENDOM BX/C OTHR DR: Dr. Terese Cote MD Tissues: Endometrium, NOS Procedures: Surgery Specimen Level IV HEADER OPERATION: Hysteroscopy, D&C, Symphion, polypectomy PRE-OP DIAGNOSIS: Postmenopausal bleeding TISSUE SUBMITTED: Endometrial polyps MICROSCOPIC DIAGNOSIS Endometrial polyps, D&C and polypectomy: Mildly disordered proliferative endometrium with cystic changes. Numerous fragments of myometrium. See comment. CASSIE/mr 07/16/2023 COMMENT Many of the fragments have polypoid appearance with fibrous stroma may represent fragments of polyp. Correlation with clinical findings and appropriate follow up are necessary. MICROSCOPIC DESCRIPTION Slides are reviewed. GROSS DESCRIPTION Received in fixative is one container labeled with the patient's name and designated Endometrial polyps. The specimen consists of multiple irregular fragments of indurated tissue that in aggregate measure 5.0 x 3.0 x 0.6 cm. The specimen is totally submitted in four cassettes.CASSIE/ 07/15/23 TC:5 CPT:67798
[2023-07-14] MEDS: Lidocaine 1% (20 ml mdv) 20 ML Vial (12:30)
--- NOTE | 2023-07-14 12:44 | PCM.OPRPT ---
Problems Associated Problem List Diagnoses (1) Postmenopausal bleeding: Report of Operation Date of Procedure: 07/14/23 Pre-Operative Diagnosis: see problem list Post-Operative Diagnosis: same Surgery/Procedure Performed:: D&C hysteroscopy polypectomy using symphion Surgeon: Corie Garcia cardiovascular technician: None Type of Anesthesia: Local MAC Special Medications: none Specimen's removed: EMC, polyp Drains: none Estimated Blood Loss (mL): 50 Fluids Replaced: crystalloid Description of Procedure: Patient was prepped and draped in a normal sterile fashion under MAC anesthesia. A weighted speculum was placed in the vagina and the anterior lip of the cervix was grasped with a single-tooth tenaculum. A paracervical block was placed with 1% lidocaine. Cervix was progressively dilated to allow passage of a 5 mm hysteroscope. The lining was fully visualized and noted to have two large polyps . Uterine sounded to 9 cm. Using the symphion device, the two large calcified polyps were progressively removed without complications. Direct visual curettage was performed using the device , and all specimens were sent to pathology. All instruments were removed from the vagina and excellent hemostasis was noted. Patient was awoken and taken to recovery in stable condition. Grafts/Implants Used: none Procedure Start Time: 12:24 Procedure Stop Time: 12:34 Complications none Admit VTE Documentation VTE Present on Admission: No VTE Mechan Device Prophylaxis: SCD's Multi Select Codes Urinary/Genital Urinary/Genital CPT Codes: 50801 Hysteroscopy,EMC, Polypectomy
--- NOTE | 2023-07-14 12:46 | DCINST_ITS ---
Discharge Instructions Diet Discharge Diet: No restrictions Activity Discharge Activity: Return to Normal Activity, May Shower and May Take a Tub Bath (after 1 week) May resume sexual activity in: 1-2 weeks Weight Bearing Status: Weight bearing as tolerated Lifting Restrictions: none Dressing / Incision Call your doctor if you observe: Fever of 101 or Higher, Using more than 1 pad per hour, Shortness of breath and Uncontrolled pain Follow Up Care Please Follow Up With: Corie Garcia MD When: Call [phone] to schedule appointment. Test Results: Test results from this visit will be discussed in further detail at your follow- up appointment, if applicable. Discharge Plan Admission Attending Provider: Corie Garcia Primary Care Provider: Terees Cote Discharge Orders/Prescriptions Prescriptions: No Action pseudoephedrine HCl [Sudafed] 30 mg tablet 30 mg PO Q4-6H PRN (Reason: nasal congestion) Rx Instructions: DNExceed 4 doses/24h multivitamin [Daily Multi-Vitamin] Tablet 1 tab PO DAILY PRN (Reason: SUPPLEMENT WHEN REMEMBERS) albuterol sulfate 90 mcg/actuation HFA aerosol inhaler 1 inh inhalation Q6H PRN (Reason: shortness of breath or wheezing) mometasone 50 mcg/actuation spray,non-aerosol 1 spray INTRANASAL Q12H Patient Comments: [NO ORIGINAL SIG] Referrals / Follow Up: Terese Cote MD [Primary Care Provider] - Disposition Disposition (needs filled in before D/C Order can be placed): Home, Self Care
== END 2023-07-14 14:32 | disposition home or self-care (01) ==
LOC: SDC 09:31 → AC 09:32
PROVIDERS: PCP Internal Medicine; Referring Provider Obstetrics & Gynecology; Visit Provider Obstetrics & Gynecology
PROC: 0UB98ZZ Excision of Uterus, Via Natural or Artificial Opening Endoscopic (ICD-10-PCS; CPT 58558; principal; 2023-07-14 11:15)
DX: N84.0 Polyp of corpus uteri (principal); N95.0 Postmenopausal bleeding; J45.909 Unspecified asthma, uncomplicated
CPT/HCPCS: 58558; 00952; 36415; 36430; 80048; 85027; 86850; 86870; 86900; 86901; 86902; 86905; 86920; 86922; 88305; 93005; J7120; J2405

== ENCOUNTER → 2023-08-04 | Outpatient (CLI) | payer OTHER, SELFPAY ==
[2023-08-04 09:14] LABS: Mucous, Urine 0 SEEN /hpf (<or=2+)
[2023-08-04 09:34] LABS: Color, Urine Yellow (Yellow); Glucose, Dipstick Normal (Normal); Ketone-Dipstick 5 mg/dl (Negative); Leukocyte Esterase-Dipstick 25 /ul (Negative); Nitrite-Dipstick Negative (Negative); Occult Blood-Urine 10 /ul (Negative); Protein-Dipstick 30 mg/dl (Negative); Specific Gravity, Urine 1.025 (1.002-1.030); Urine Bilirubin Dipstick Negative (Negative); Urine Clarity Sl. Cloudy (Clear); Urine Urobilinogen Normal (Normal)
[2023-08-04 09:45] LABS: Bacteria RARE /hpf (None Seen); Red Blood Cells-Urine 0-5 SEEN /hpf (0-5); Squamous Epithelial Cells - UA 0-5 SEEN /hpf (5-10); White Blood Cells 0-5 SEEN /hpf (0-5)
== END | disposition home or self-care (01) ==
LOC: LAB 09:09
PROVIDERS: PCP Internal Medicine; Referring Provider Obstetrics & Gynecology; Visit Provider Obstetrics & Gynecology
DX: R30.0 Dysuria (principal)
CPT/HCPCS: 81001; 87086; 87088